=== PATIENT | male | born 1960 | race Caucasian/White ===

== ENCOUNTER 2019-04-13 11:54 | Emergency (ER) | payer MEDICAID ==
[~2019-04-13] VITALS: Ht 177.8 cm; Wt 100.4 kg
[2019-04-13] MEDS ORDERED: ALBUTEROL/IPRATROPIUM 2.5MG/0.5MG, 3 ML ONE (12:20)
--- NOTE | 2019-04-13 12:22 | NUR ---
PT PRESENTS TO ED WITH C/O SOB WITH EXERTION X 7-8 DAYS, +COUGH. PT DENIES CHEST PAIN. ALL MONITORS IN PLACE, OXYGEN APPLIED AT 2L/MIN VIA NC IN TRIAGE. PT A&O, RESPS EVEN AND UNLABORED. NADN. PT TO XRAY AT THIS TIME.
[2019-04-13] MEDS ORDERED: methylPREDNISolone SOD SUCC 125 MG/2 ML IV ONE (12:30)
[2019-04-13] MEDS ORDERED: SODIUM CHLORIDE FLUSH 10ML SYR IVF ONE (12:30)
[2019-04-13 12:49] LABS: BASOPHILS # (AUTO) 0.06 x10^3/uL (0-0.1); BASOPHILS % (AUTO) 1 % (0-1); EOSINOPHILS # (AUTO) 1.15 x10^3/uL (0-0.4); EOSINOPHILS % (AUTO) 15 % (1-7); LYMPHOCYTES # (AUTO) 1.57 x10^3/uL (1-3.4); LYMPHOCYTES % (AUTO) 21 % (22-44); MD NO; MEAN CORPUSCULAR HEMOGLOBIN 29.2 pg (27.5-34.5); MEAN CORPUSCULAR HGB CONC 32.7 g/dL (33.2-36.2); MEAN CORPUSCULAR VOLUME 89.2 fL (81-97); MEAN PLATELET VOLUME 7.5 fL (7.4-10.4); MONOCYTES # (AUTO) 0.67 x10^3/uL (0.2-0.8); MONOCYTES % (AUTO) 9 % (2-9); NEUTROPHILS % (AUTO) 54 % (42-75); PLATELET COUNT 261 x10^3/uL (130-400); RED BLOOD COUNT 4.76 x10^6/uL (4.38-5.82); RED CELL DISTRIBUTION WIDTH 14.1 % (9.4-14.8)
[2019-04-13 12:57] LABS: CHLORIDE 102 mmol/L (98-107)
--- NOTE | 2019-04-13 13:02 | NUR ---
PT MEDICATED PER EMAR, TOLERATED WELL. PT A&O, RESPS EVEN AND UNLABORED, NSR ON SCRUB TECH WITH NO ECTOPY NOTED. EKG HAS BEEN TAKEN BY EDT. PT ABLE TO SPEAK IN FULL SENTENCES WITHOUT DIFFICUTLY. AWAITING RT TX AT THIS TIME, RT AWARE OF ORDERS.
[2019-04-13 13:03] LABS: ALBUMIN 3.3 g/dL (3.4-5.0); ANION GAP 3 mmol/L (5-15); CALCIUM 8.9 mg/dL (8.5-10.1); CREATININE 0.72 mg/dL (0.7-1.3)
[2019-04-13 13:32] LABS: TROPONIN I < 0.015 ng/mL (0.000-0.045)
--- NOTE | 2019-04-13 13:52 | NUR ---
RT paged to give pt tx. pt a&o, resps even and unlabored, nsr on bus driver/monitor with no ectopy. nadn at this time.
[2019-04-13] MEDS: ALBUTEROL/IPRATROPIUM 2.5MG/0.5MG, 3 ML NPPB SCH (13:57)
[2019-04-13 14:57] VITALS: BP 127/89
--- NOTE | 2019-04-13 14:58 | NUR ---
RT TX HAS BEEN COMPLETED, PT A&O, RESPS EVEN AND UNLABORED, PT IS SINUS TACH RATE 90'S ON PEDIATRIC DENTIST WITH NO ECTOPY. PT TRIALED ON ROOM AIR, SPOW 88-92% ON ROOM AIR. OXYGEN REAPPLIED AT 2L/MIN VIA NC. MD BAINS INFORMED, AT BEDSIDE AT THIS TIME.
--- NOTE | 2019-04-13 14:59 | NUR ---
REPORT TO FRANKIE CARMEN.
--- NOTE | 2019-04-13 15:05 | NUR ---
REPORT FROM FRANKIE GOODWIN. POC IS DC. IV DC'D. PT OFF MONITORING. AWAITING DC INSTRUCTIONS.
--- NOTE | 2019-04-13 15:22 | NUR ---
DC EDUCATION PROVIDED, PT DEMONSTRATES UNDERSTANDING. PT AMBUALTED STEADILY TO DC WITH RN. PT STATES HE "HAS HIS PORTABLE OXYGEN IN THE CAR".
== END 2019-04-13 15:24 | disposition home or self-care (01) ==
LOC: ED 14:46
DX: J44.1 Chronic obstructive pulmonary disease with (acute) exacerbation (principal); Z87.891 Personal history of nicotine dependence
CPT/HCPCS: 36415; 71046; 80048; 82040; 83605; 83880; 84484; 85025; 87040; 93005; 94640; 96374; 99284; J2930; J7620

== ENCOUNTER 2019-06-04 15:37 | Inpatient (IN) | payer MEDICAID, OTHER ==
[~2019-06-04] VITALS: Ht 177.8 cm; Wt 95.7 kg
[~2019-06-04 15:37] MED LIST: FLUT1BLS9 INH; FURO40TA6 PO; HYDR200T72 PO; MONT10TA11 PO; PRED10TA PO; SULF500T36 PO; TIOT18CA INH; UMEC62.5 INH
[2019-06-04] MEDS ORDERED: methylPREDNISolone SOD SUCC 125 MG/2 ML ONE (16:15)
[2019-06-04] MEDS ORDERED: ALBUTEROL/IPRATROPIUM 2.5MG/0.5MG, 3 ML ONE (16:19)
[2019-06-04] MEDS ORDERED: ALBUTEROL/IPRATROPIUM 2.5MG/0.5MG, 3 ML NPPB ONE (16:30)
[2019-06-04] MEDS ORDERED: methylPREDNISolone SOD SUCC 125 MG/2 ML IV ONE (16:30)
[2019-06-04] MEDS ORDERED: SODIUM CHLORIDE FLUSH 10ML SYR IVF ONE (16:30)
[2019-06-04 16:34] LABS: BASOPHILS # (AUTO) 0.03 x10^3/uL (0-0.1); BASOPHILS % (AUTO) 0 % (0-1); EOSINOPHILS # (AUTO) 1.37 x10^3/uL (0-0.4); EOSINOPHILS % (AUTO) 20 % (1-7); LYMPHOCYTES % (AUTO) 16 % (22-44); MD NO; MEAN CORPUSCULAR HEMOGLOBIN 28.5 pg (27.5-34.5); MEAN CORPUSCULAR HGB CONC 32.5 g/dL (33.2-36.2); MEAN CORPUSCULAR VOLUME 87.6 fL (81-97); MEAN PLATELET VOLUME 7.9 fL (7.4-10.4); MONOCYTES # (AUTO) 0.58 x10^3/uL (0.2-0.8); MONOCYTES % (AUTO) 8 % (2-9); NEUTROPHILS # (AUTO) 3.76 x10^3/uL (1.8-6.8); NEUTROPHILS % (AUTO) 55 % (42-75); PLATELET COUNT 203 x10^3/uL (130-400); RED BLOOD COUNT 5.44 x10^6/uL (4.38-5.82); RED CELL DISTRIBUTION WIDTH 14.9 % (9.4-14.8)
[2019-06-04 16:37] LABS: ALBUMIN 3.8 g/dL (3.4-5.0); ANION GAP 2 mmol/L (5-15); CALCIUM 9.3 mg/dL (8.5-10.1); CHLORIDE 97 mmol/L (98-107)
--- NOTE | 2019-06-04 18:45 | NUR ---
PT REMAINS SATS GREATER THEN 92 % WHILE ON AT 3LPM OXI MASK WILL DESAT FAST ON RA TO 77% CONTINUES TO BE A04 AN HAS BEEN UP TO BS FOR URINATION
--- NOTE | 2019-06-04 19:18 | NUR ---
REPORT FROM ARABELLA DAVID. ASSUMING CARE OF PT
[2019-06-04] MEDS ORDERED: UMEC62.5 INH (19:32)
--- NOTE | 2019-06-04 20:23 | NUR ---
PT RESTING ON FRANCESCO ASHFORD MD AT BEDSIDE TO TEST PERFORM SWAB AT THIS TIME
[2019-06-04] MEDS ORDERED: SODIUM CHLORIDE FLUSH 10ML SYR IVF PRN (20:30)
[2019-06-04] MEDS ORDERED: DOXYCYCLINE 100MG TABLET ONE (20:37)
[2019-06-04] MEDS ORDERED: FUROSEMIDE 40 MG TABLET ONE (20:37)
[2019-06-04] MEDS ORDERED: SALMETEROL HOMEINH SCH (21:00)
[2019-06-04] MEDS ORDERED: LIDODERM 5% PATCH TD PRN (21:00)
[2019-06-04] MEDS ORDERED: ACETAMINOPHEN 325 MG TABLET PO PRN (21:00)
[2019-06-04] MEDS ORDERED: TEMAZEPAM 15 MG CAPSULE PO PRN (21:00)
[2019-06-04] MEDS ORDERED: FLUTICASONE PROPION HOMEINH SCH (21:00)
[2019-06-04] MEDS ORDERED: DOCUSATE 100 MG CAPSULE PO PRN (21:00)
[2019-06-04] MEDS: FUROSEMIDE 40 MG TABLET PO SCH (21:11)
[2019-06-04] MEDS: DOXYCYCLINE 100MG TABLET PO SCH (21:11)
--- NOTE | 2019-06-04 21:38 | NUR ---
REQ SENT TO PHARMACY AT THIS TIME. AWAITING MEDS
[2019-06-04 21:49] LABS: RAPID INFLUENZA A Negative (Negative); RAPID INFLUENZA B Negative (Negative)
--- NOTE | 2019-06-04 21:59 | NUR ---
REPORT TO BRIDGETTE DAVID. PT READY FOR TRANSFER TO 301-2
[2019-06-04] MEDS: MONTELUKAST 10 MG TABLET PO SCH (23:00)
[2019-06-04] MEDS: ENOXAPARIN 40 MG/0.4 ML SQ SCH (23:00)
[2019-06-04] MEDS: ALBUTEROL SULFATE 200 PUFFS/8.5 GR INH INH SCH (23:00)
[2019-06-04 23:15] VITALS: BP 140/85
[2019-06-05 03:37] VITALS: BP 127/64
[2019-06-05] MEDS: ALBUTEROL SULFATE 200 PUFFS/8.5 GR INH INH SCH ×4 (05:38→23:00)
[2019-06-05] MEDS: methylPREDNISolone SOD SUCC 125 MG/2 ML IVPush SCH ×3 (05:38→23:31)
[2019-06-05 06:42] LABS: BASOPHILS % (AUTO) 0 % (0-1); EOSINOPHILS % (AUTO) 0 % (1-7); LYMPHOCYTES # (AUTO) 0.65 x10^3/uL (1-3.4); LYMPHOCYTES % (AUTO) 19 % (22-44); MD NO; MEAN CORPUSCULAR HEMOGLOBIN 28.6 pg (27.5-34.5); MEAN CORPUSCULAR HGB CONC 32.5 g/dL (33.2-36.2); MONOCYTES # (AUTO) 0.12 x10^3/uL (0.2-0.8); MONOCYTES % (AUTO) 4 % (2-9); NEUTROPHILS # (AUTO) 2.65 x10^3/uL (1.8-6.8); NEUTROPHILS % (AUTO) 77 % (42-75); PLATELET COUNT 212 x10^3/uL (130-400); RED BLOOD COUNT 5.21 x10^6/uL (4.38-5.82)
[2019-06-05 06:46] LABS: ANION GAP 3 mmol/L (5-15); CALCIUM 9.3 mg/dL (8.5-10.1); CHLORIDE 98 mmol/L (98-107); CREATININE 0.99 mg/dL (0.7-1.3)
[2019-06-05] MEDS: DOXYCYCLINE 100MG TABLET PO SCH ×2 (08:19→21:52)
[2019-06-05] MEDS: SULFASALAZINE 500 MG TABLET PO SCH (08:19)
[2019-06-05] MEDS: HYDROXYCHLOROQUINE 200 MG TABLET PO SCH (08:19)
[2019-06-05 08:40] VITALS: BP 123/75
[2019-06-05] MEDS: UMECLIDINIUM BROMIDE HOMEINH SCH (08:41)
[2019-06-05] MEDS: FLUTICASONE PROPION HOMEINH SCH ×2 (08:41→21:00)
[2019-06-05] MEDS: SALMETEROL HOMEINH SCH ×2 (08:41→21:00)
[2019-06-05] MEDS: GUAIFENESIN/DM 200-20MG, 10ML UDC PO PRN (10:23)
[2019-06-05 14:33] VITALS: BP 133/92
[2019-06-05] MEDS: GUAIFENESIN ER 600 MG TABLET PO SCH ×2 (18:24→21:52)
[2019-06-05 18:57] VITALS: BP 128/81
[2019-06-05] MEDS: MONTELUKAST 10 MG TABLET PO SCH (21:51)
[2019-06-05] MEDS: FUROSEMIDE 40 MG TABLET PO SCH (21:53)
[2019-06-05] MEDS: ENOXAPARIN 40 MG/0.4 ML SQ SCH (21:53)
[2019-06-06 02:41] VITALS: BP 140/76
[2019-06-06] MEDS: ALBUTEROL SULFATE 200 PUFFS/8.5 GR INH INH SCH ×4 (05:00→23:00)
[2019-06-06] MEDS: methylPREDNISolone SOD SUCC 125 MG/2 ML IVPush SCH ×3 (06:30→22:40)
[2019-06-06] MEDS: DOXYCYCLINE 100MG TABLET PO SCH ×2 (09:03→20:27)
[2019-06-06] MEDS: SULFASALAZINE 500 MG TABLET PO SCH (09:03)
[2019-06-06] MEDS: HYDROXYCHLOROQUINE 200 MG TABLET PO SCH (09:03)
[2019-06-06] MEDS: UMECLIDINIUM BROMIDE HOMEINH SCH (09:03)
[2019-06-06] MEDS: SALMETEROL HOMEINH SCH ×2 (09:03→20:27)
[2019-06-06] MEDS: FLUTICASONE PROPION HOMEINH SCH ×2 (09:03→20:27)
[2019-06-06] MEDS: GUAIFENESIN ER 600 MG TABLET PO SCH ×2 (09:03→20:27)
[2019-06-06 09:22] VITALS: BP 123/80
[2019-06-06 15:04] VITALS: BP 134/87
[2019-06-06 20:00] VITALS: BP 145/88
[2019-06-06] MEDS: MONTELUKAST 10 MG TABLET PO SCH (20:27)
[2019-06-06] MEDS: ENOXAPARIN 40 MG/0.4 ML SQ SCH (20:27)
[2019-06-06] MEDS: FUROSEMIDE 40 MG TABLET PO SCH (20:27)
[2019-06-07] VITALS: BP 126/77
[2019-06-07] MEDS: ALBUTEROL SULFATE 200 PUFFS/8.5 GR INH INH SCH ×4 (05:15→22:52)
[2019-06-07] MEDS: methylPREDNISolone SOD SUCC 125 MG/2 ML IVPush SCH ×3 (06:18→22:52)
[2019-06-07 06:53] VITALS: BP 110/74
[2019-06-07] MEDS: UMECLIDINIUM BROMIDE HOMEINH SCH (09:00)
[2019-06-07] MEDS: FLUTICASONE PROPION HOMEINH SCH ×2 (09:00→20:40)
[2019-06-07] MEDS: SALMETEROL HOMEINH SCH ×2 (09:00→20:40)
[2019-06-07] MEDS: GUAIFENESIN ER 600 MG TABLET PO SCH ×2 (10:35→20:36)
[2019-06-07] MEDS: SULFASALAZINE 500 MG TABLET PO SCH (10:35)
[2019-06-07] MEDS: HYDROXYCHLOROQUINE 200 MG TABLET PO SCH (10:35)
[2019-06-07] MEDS: DOXYCYCLINE 100MG TABLET PO SCH ×2 (10:36→20:36)
[2019-06-07] MEDS: GUAIFENESIN/DM 200-20MG, 10ML UDC PO PRN (10:36)
[2019-06-07 12:06] VITALS: BP 135/84
[2019-06-07 17:40] LABS: MICROSCOPIC AUTO
[2019-06-07 17:41] LABS: CULTURE INDICATED? YES
[2019-06-07 18:23] VITALS: BP 136/84
[2019-06-07] MEDS: FUROSEMIDE 40 MG TABLET PO SCH (20:36)
[2019-06-07] MEDS: ENOXAPARIN 40 MG/0.4 ML SQ SCH (20:36)
[2019-06-07] MEDS: MONTELUKAST 10 MG TABLET PO SCH (20:36)
[2019-06-08 00:43] VITALS: BP 133/64
[2019-06-08] MEDS: ALBUTEROL SULFATE 200 PUFFS/8.5 GR INH INH SCH ×4 (05:12→23:00)
[2019-06-08 06:13] LABS: BASOPHILS % (AUTO) 0 % (0-1); EOSINOPHILS % (AUTO) 0 % (1-7); LYMPHOCYTES # (AUTO) 0.72 x10^3/uL (1-3.4); LYMPHOCYTES % (AUTO) 7 % (22-44); MD NO; MEAN CORPUSCULAR HGB CONC 32.9 g/dL (33.2-36.2); MEAN CORPUSCULAR VOLUME 88.2 fL (81-97); MEAN PLATELET VOLUME 8.2 fL (7.4-10.4); MONOCYTES # (AUTO) 0.25 x10^3/uL (0.2-0.8); MONOCYTES % (AUTO) 3 % (2-9); NEUTROPHILS # (AUTO) 9.01 x10^3/uL (1.8-6.8); NEUTROPHILS % (AUTO) 90 % (42-75); PLATELET COUNT 195 x10^3/uL (130-400); RED BLOOD COUNT 4.86 x10^6/uL (4.38-5.82); RED CELL DISTRIBUTION WIDTH 14.7 % (9.4-14.8)
[2019-06-08] MEDS: methylPREDNISolone SOD SUCC 125 MG/2 ML IVPush SCH ×3 (06:18→23:22)
[2019-06-08 06:24] LABS: CHLORIDE 99 mmol/L (98-107)
[2019-06-08 06:32] LABS: ANION GAP 5 mmol/L (5-15); CALCIUM 8.9 mg/dL (8.5-10.1); CREATININE 0.75 mg/dL (0.7-1.3)
[2019-06-08 06:49] VITALS: BP 109/70
[2019-06-08] MEDS: UMECLIDINIUM BROMIDE HOMEINH SCH (09:00)
[2019-06-08] MEDS: SALMETEROL HOMEINH SCH ×2 (09:00→20:28)
[2019-06-08] MEDS: FLUTICASONE PROPION HOMEINH SCH ×2 (09:00→20:28)
[2019-06-08] MEDS: SULFASALAZINE 500 MG TABLET PO SCH (10:24)
[2019-06-08] MEDS: DOXYCYCLINE 100MG TABLET PO SCH ×2 (10:25→20:28)
[2019-06-08] MEDS: HYDROXYCHLOROQUINE 200 MG TABLET PO SCH (10:25)
[2019-06-08] MEDS: GUAIFENESIN ER 600 MG TABLET PO SCH ×2 (10:25→20:28)
[2019-06-08] MEDS: GUAIFENESIN/DM 200-20MG, 10ML UDC PO PRN (10:26)
[2019-06-08 13:45] VITALS: BP 115/70
[2019-06-08] MEDS ORDERED: OMNIPAQUE 350 MG/ML, 100ML BOTTLE ONE (15:38)
[2019-06-08] MEDS: CEFDINIR 300 MG CAPSULE PO SCH (15:43)
[2019-06-08] MEDS: FUROSEMIDE 40 MG TABLET PO SCH (17:52)
[2019-06-08 18:12] VITALS: BP 119/68
[2019-06-08] MEDS: MONTELUKAST 10 MG TABLET PO SCH (20:28)
[2019-06-08] MEDS: ENOXAPARIN 40 MG/0.4 ML SQ SCH (20:28)
[2019-06-09 00:16] VITALS: BP 120/65
[2019-06-09] MEDS: CEFDINIR 300 MG CAPSULE PO SCH ×2 (04:56→14:08)
[2019-06-09] MEDS: ALBUTEROL SULFATE 200 PUFFS/8.5 GR INH INH SCH ×4 (04:57→23:00)
[2019-06-09 05:46] LABS: BASOPHILS % (AUTO) 0 % (0-1); EOSINOPHILS % (AUTO) 0 % (1-7); LYMPHOCYTES # (AUTO) 0.73 x10^3/uL (1-3.4); LYMPHOCYTES % (AUTO) 7 % (22-44); MD NO; MEAN CORPUSCULAR HEMOGLOBIN 28.8 pg (27.5-34.5); MEAN CORPUSCULAR VOLUME 87.4 fL (81-97); MEAN PLATELET VOLUME 8.4 fL (7.4-10.4); MONOCYTES # (AUTO) 0.37 x10^3/uL (0.2-0.8); MONOCYTES % (AUTO) 3 % (2-9); NEUTROPHILS # (AUTO) 9.79 x10^3/uL (1.8-6.8); NEUTROPHILS % (AUTO) 90 % (42-75); PLATELET COUNT 204 x10^3/uL (130-400); RED BLOOD COUNT 4.96 x10^6/uL (4.38-5.82); RED CELL DISTRIBUTION WIDTH 14.6 % (9.4-14.8)
[2019-06-09 05:53] LABS: CALCIUM 8.9 mg/dL (8.5-10.1); CHLORIDE 102 mmol/L (98-107)
[2019-06-09 05:56] LABS: ANION GAP 3 mmol/L (5-15); CREATININE 0.69 mg/dL (0.7-1.3)
[2019-06-09 06:40] VITALS: BP 137/91
[2019-06-09] MEDS: methylPREDNISolone SOD SUCC 125 MG/2 ML IVPush SCH ×2 (07:45→14:08)
[2019-06-09] MEDS: DOXYCYCLINE 100MG TABLET PO SCH ×2 (07:45→20:33)
[2019-06-09] MEDS: HYDROXYCHLOROQUINE 200 MG TABLET PO SCH (07:45)
[2019-06-09] MEDS: SULFASALAZINE 500 MG TABLET PO SCH (07:45)
[2019-06-09] MEDS: GUAIFENESIN ER 600 MG TABLET PO SCH ×2 (07:45→20:33)
[2019-06-09] MEDS: SALMETEROL HOMEINH SCH ×2 (07:46→20:33)
[2019-06-09] MEDS: UMECLIDINIUM BROMIDE HOMEINH SCH (07:46)
[2019-06-09] MEDS: FLUTICASONE PROPION HOMEINH SCH ×2 (07:46→20:33)
[2019-06-09 15:16] VITALS: BP 120/63
[2019-06-09] MEDS: FUROSEMIDE 40 MG TABLET PO SCH (16:23)
[2019-06-09] MEDS ORDERED: POTA20PA25 PO (17:08)
[2019-06-09] MEDS ORDERED: DOXY100T PO (17:08)
[2019-06-09] MEDS ORDERED: PRED20TA PO (17:08)
[2019-06-09] MEDS ORDERED: CEFD300C37 PO ×2 (17:08)
[2019-06-09 18:53] VITALS: BP 121/70
[2019-06-09] MEDS: ENOXAPARIN 40 MG/0.4 ML SQ SCH (20:33)
[2019-06-09] MEDS: MONTELUKAST 10 MG TABLET PO SCH (20:33)
[2019-06-10 00:28] VITALS: BP 112/70
[2019-06-10] MEDS: CEFDINIR 300 MG CAPSULE PO SCH (03:47)
[2019-06-10] MEDS: ALBUTEROL SULFATE 200 PUFFS/8.5 GR INH INH SCH ×2 (05:00→11:00)
[2019-06-10 06:38] VITALS: BP 134/84
[2019-06-10] MEDS: GUAIFENESIN ER 600 MG TABLET PO SCH (07:31)
[2019-06-10] MEDS: SULFASALAZINE 500 MG TABLET PO SCH (07:31)
[2019-06-10] MEDS: SALMETEROL HOMEINH SCH (07:31)
[2019-06-10] MEDS: UMECLIDINIUM BROMIDE HOMEINH SCH (07:31)
[2019-06-10] MEDS: DOXYCYCLINE 100MG TABLET PO SCH (07:31)
[2019-06-10] MEDS: FLUTICASONE PROPION HOMEINH SCH (07:31)
[2019-06-10] MEDS ORDERED: CEFD300C37 PO (09:32)
== END 2019-06-10 13:40 | disposition home or self-care (01) | DRG 189 ==
LOC: ED 17:21 → EDIP 20:40 → 3WST 22:29 → 3N 06-06 23:58
PROVIDERS: ADMIT Family Medicine; ATTEND Internal Medicine
DX: J96.21 Acute and chronic respiratory failure with hypoxia (principal); I50.32 Chronic diastolic (congestive) heart failure; Z16.23 Resistance to quinolones and fluoroquinolones; B96.20 Unspecified Escherichia coli [E. coli] as the cause of diseases classified elsewhere; I27.20 Pulmonary hypertension, unspecified; I35.0 Nonrheumatic aortic (valve) stenosis; J20.9 Acute bronchitis, unspecified; J43.9 Emphysema, unspecified; M06.9 Rheumatoid arthritis, unspecified; N30.90 Cystitis, unspecified without hematuria; Z87.891 Personal history of nicotine dependence
CPT/HCPCS: 36415; 71045; 71275; 80048; 81001; 82040; 83605; 83880; 85025; 87040; 87077; 87086; 87186; 87400; 93005; 93308; 93321; 93325; 94640; 96374; 99285; G0378; J1650; Q9967; J2930; J7512

== ENCOUNTER 2019-07-31 10:07 | Inpatient (IN) | payer OTHER ==
[~2019-07-31] VITALS: Ht 177.8 cm; Wt 105.2 kg
[~2019-07-31 10:07] MED LIST changes: +CEFD300C37 PO; +DOXY100T PO; +POTA20PA25 PO; +PRED20TA PO
--- NOTE | 2019-07-31 10:35 | NUR ---
pt to ed for sob x10 days. hx copd. pt connected to all monitors. pt placed on 3lnc now with recovery to >94%. vss on 3lnc. Dr. Lazo to bs for assessment. awaiting orders.
[2019-07-31] MEDS ORDERED: ALBUTEROL/IPRATROPIUM 2.5MG/0.5MG, 3 ML ONE ×2 (10:46→12:51)
[2019-07-31] MEDS ORDERED: methylPREDNISolone SOD SUCC 125 MG/2 ML ONE (10:51)
--- NOTE | 2019-07-31 10:57 | NUR ---
piv established and labs drawn. vss. pt emdicted per may. task rn to bs for [facility] tx at this time. awaiting results.
[2019-07-31] MEDS ORDERED: SODIUM CHLORIDE FLUSH 10ML SYR IVF ONE (11:00)
[2019-07-31] MEDS ORDERED: ALBUTEROL/IPRATROPIUM 2.5MG/0.5MG, 3 ML NPPB ONE ×2 (11:00→12:30)
[2019-07-31] MEDS ORDERED: methylPREDNISolone SOD SUCC 125 MG/2 ML IV ONE (11:00)
--- NOTE | 2019-07-31 11:02 | NUR ---
contacted radiology to facilitate chest x ray prior to neb tx. radiology was unavailable at time. breathing txc performed in room. papr worn throughout. pt tolerated tx well. airborne precautions sign placed.
[2019-07-31 11:15] LABS: BASOPHILS # (AUTO) 0.03 x10^3/uL (0-0.1); BASOPHILS % (AUTO) 0 % (0-1); EOSINOPHILS # (AUTO) 1.17 x10^3/uL (0-0.4); EOSINOPHILS % (AUTO) 13 % (1-7); LYMPHOCYTES # (AUTO) 1.45 x10^3/uL (1-3.4); LYMPHOCYTES % (AUTO) 16 % (22-44); MD NO; MEAN CORPUSCULAR HGB CONC 32.4 g/dL (33.2-36.2); MEAN CORPUSCULAR VOLUME 86.6 fL (81-97); MEAN PLATELET VOLUME 7.8 fL (7.4-10.4); MONOCYTES # (AUTO) 0.65 x10^3/uL (0.2-0.8); MONOCYTES % (AUTO) 7 % (2-9); NEUTROPHILS # (AUTO) 5.66 x10^3/uL (1.8-6.8); NEUTROPHILS % (AUTO) 63 % (42-75); PLATELET COUNT 270 x10^3/uL (130-400); RED BLOOD COUNT 4.92 x10^6/uL (4.38-5.82); RED CELL DISTRIBUTION WIDTH 15.1 % (9.4-14.8)
[2019-07-31 11:21] LABS: ALBUMIN 3.3 g/dL (3.4-5.0); ANION GAP 1 mmol/L (5-15); CALCIUM 9.1 mg/dL (8.5-10.1); CHLORIDE 97 mmol/L (98-107)
[2019-07-31 11:22] LABS: CREATININE 0.82 mg/dL (0.7-1.3)
--- NOTE | 2019-07-31 11:28 | NUR ---
all results back at this time. chart up for recheck.
--- NOTE | 2019-07-31 13:20 | NUR ---
O2 ROAD TEST WITH TECH. PER TECH, 4LNC O2 KEEPS SPO2 >93% WHILE WALKING.
--- NOTE | 2019-07-31 13:51 | NUR ---
PT RESTING IN ROOM. VSS ON 3LNC. DR. VALERA UPDATED PT ON POC. PLAN TO ADMIT.
[2019-07-31] MEDS ORDERED: ATOM80CA PO (14:17)
[2019-07-31] MEDS ORDERED: ZOLP10TA PO (14:17)
[2019-07-31] MEDS ORDERED: METH20TA PO (14:17)
[2019-07-31] MEDS ORDERED: GABA300C10 PO (14:17)
[2019-07-31] MEDS ORDERED: CARI4.5C PO (14:17)
[2019-07-31] MEDS ORDERED: CLON1TAB PO (14:17)
[2019-07-31] MEDS ORDERED: LISI-167 PO (14:18)
[2019-07-31] MEDS ORDERED: LEVE500T53 PO (14:18)
[2019-07-31] MEDS ORDERED: SODIUM CHLORIDE FLUSH 10ML SYR IVF PRN (14:30)
[2019-07-31] MEDS ORDERED: ONDANSETRON 2MG/ML, 2ML IVPush PRN (15:30)
[2019-07-31] MEDS ORDERED: POLYETHYLENE GLYCOL 17 GM PACKET PO PRN (15:30)
[2019-07-31] MEDS ORDERED: ACETAMINOPHEN 325 MG TABLET PO PRN (15:30)
[2019-07-31] MEDS ORDERED: ONDANSETRON ODT 4 MG PO PRN (15:30)
[2019-07-31] MEDS ORDERED: DOCUSATE 100 MG CAPSULE PO PRN (15:30)
--- NOTE | 2019-07-31 16:34 | NUR ---
REPORT TO FRANKIE DONOVAN. PT READY FOR TRANSPORT.
[2019-07-31] MEDS ORDERED: UMEC62.5 INH (18:11)
[2019-07-31] MEDS ORDERED: ALBU18HF INH (18:11)
[2019-07-31] MEDS ORDERED: FLUT1BLS9 INH (18:11)
[2019-07-31] MEDS ORDERED: ERGO2000 PO (18:11)
[2019-07-31] MEDS ORDERED: TUMERIC PO (18:11)
[2019-07-31] MEDS ORDERED: SULF500T47 PO (18:12)
[2019-07-31] MEDS ORDERED: ELDE1CAP PO (18:16)
[2019-07-31 18:19] VITALS: BP 130/73
[2019-07-31] MEDS: ENOXAPARIN 40 MG/0.4 ML SQ SCH (18:32)
[2019-07-31 20:38] VITALS: BP 132/76
[2019-07-31] MEDS: MONTELUKAST 5 MG TAB.CHEW PO SCH (20:44)
[2019-07-31] MEDS: HYDROXYCHLOROQUINE 200 MG TABLET PO SCH (20:45)
[2019-07-31] MEDS: methylPREDNISolone SOD SUCC 125 MG/2 ML IVPush SCH (20:45)
[2019-08-01] MEDS: methylPREDNISolone SOD SUCC 125 MG/2 ML IVPush SCH (02:10)
[2019-08-01 02:16] VITALS: BP 127/75
[2019-08-01 05:45] LABS: BASOPHILS # (AUTO) 0.01 x10^3/uL (0-0.1); BASOPHILS % (AUTO) 0 % (0-1); EOSINOPHILS % (AUTO) 0 % (1-7); LYMPHOCYTES # (AUTO) 0.73 x10^3/uL (1-3.4); LYMPHOCYTES % (AUTO) 12 % (22-44); MD NO; MEAN CORPUSCULAR HEMOGLOBIN 28.4 pg (27.5-34.5); MEAN CORPUSCULAR HGB CONC 32.7 g/dL (33.2-36.2); MEAN CORPUSCULAR VOLUME 86.7 fL (81-97); MEAN PLATELET VOLUME 7.8 fL (7.4-10.4); MONOCYTES # (AUTO) 0.07 x10^3/uL (0.2-0.8); MONOCYTES % (AUTO) 1 % (2-9); NEUTROPHILS # (AUTO) 5.24 x10^3/uL (1.8-6.8); NEUTROPHILS % (AUTO) 87 % (42-75); PLATELET COUNT 248 x10^3/uL (130-400); RED BLOOD COUNT 4.69 x10^6/uL (4.38-5.82); RED CELL DISTRIBUTION WIDTH 15.4 % (9.4-14.8)
[2019-08-01 05:53] LABS: ALANINE AMINOTRANSFERASE 25 U/L (12-78); ALBUMIN 3.1 g/dL (3.4-5.0); ANION GAP 3 mmol/L (5-15); CALCIUM 9.3 mg/dL (8.5-10.1); CHLORIDE 97 mmol/L (98-107)
[2019-08-01 05:56] LABS: ALKALINE PHOSPHATASE 106 U/L (45-117); BILIRUBIN,TOTAL 0.4 mg/dL (0.2-1.0); CREATININE 0.81 mg/dL (0.7-1.3); TOTAL PROTEIN 8.7 g/dL (6.4-8.2)
[2019-08-01 07:09] VITALS: BP 107/65
[2019-08-01] MEDS: SULFASALAZINE 500 MG TABLET PO SCH (08:19)
[2019-08-01] MEDS: HYDROXYCHLOROQUINE 200 MG TABLET PO SCH ×2 (08:19→22:16)
[2019-08-01] MEDS: FUROSEMIDE 40 MG TABLET PO SCH (08:20)
[2019-08-01] MEDS ORDERED: HYDROXYCHLOROQUINE 200 MG TABLET PO SCH (09:00)
[2019-08-01 12:17] LABS: BILIRUBIN, DIRECT 0.1 mg/dL (0.1-0.2)
[2019-08-01 13:23] VITALS: BP 109/66
[2019-08-01] MEDS ORDERED: FURO40TA6 PO (14:48)
[2019-08-01] MEDS ORDERED: TUMERIC PO SCH (16:00)
[2019-08-01] MEDS ORDERED: ALBUTEROL SULFATE 2.5 MG/3 ML NPPB SCH (16:00)
[2019-08-01] MEDS: ALBUTEROL/IPRATROPIUM 2.5MG/0.5MG, 3 ML NPPB SCH ×2 (17:17→17:18)
[2019-08-01] MEDS ORDERED: VENTOLIN INH SCH (18:00)
[2019-08-01] MEDS: ENOXAPARIN 40 MG/0.4 ML SQ SCH (18:17)
[2019-08-01 20:31] VITALS: BP 102/62
[2019-08-01] MEDS: FLUTICASONE PROPION INH SCH (21:00)
[2019-08-01] MEDS ORDERED: FLUTICASONE PROPION INH SCH (21:00)
[2019-08-01] MEDS ORDERED: [UNRECOGNIZED DRUG - OTHER] INH SCH (21:00)
[2019-08-01] MEDS: [UNRECOGNIZED DRUG - OTHER] INH SCH (21:00)
[2019-08-01] MEDS ORDERED: BUDESONIDE 0.5 MG/2 ML INHA NPPB SCH (21:00)
[2019-08-01] MEDS: SALMETEROL INH SCH (21:00)
[2019-08-01] MEDS ORDERED: SALMETEROL INH SCH (21:00)
[2019-08-01] MEDS: ALBUTEROL HFA 90 MCG/SPRAY INH SCH (22:00)
[2019-08-01] MEDS: MONTELUKAST 5 MG TAB.CHEW PO SCH (22:16)
[2019-08-02 00:41] VITALS: BP 127/72
[2019-08-02] MEDS: ALBUTEROL HFA 90 MCG/SPRAY INH SCH ×5 (06:00→22:00)
[2019-08-02 07:28] VITALS: BP 125/77
[2019-08-02] MEDS ORDERED: [UNRECOGNIZED DRUG - OTHER] PO SCH (09:00)
[2019-08-02] MEDS ORDERED: ELDERBERRY FRUIT AND FLOWER PO SCH (09:00)
[2019-08-02] MEDS: SULFASALAZINE 500 MG TABLET PO SCH (09:42)
[2019-08-02] MEDS: HYDROXYCHLOROQUINE 200 MG TABLET PO SCH ×2 (09:42→20:23)
[2019-08-02] MEDS: FUROSEMIDE 40 MG TABLET PO SCH (09:43)
[2019-08-02] MEDS: FLUTICASONE PROPION INH SCH ×2 (09:47→20:24)
[2019-08-02] MEDS: [UNRECOGNIZED DRUG - OTHER] INH SCH ×2 (09:47→20:24)
[2019-08-02] MEDS: SALMETEROL INH SCH ×2 (09:47→20:24)
[2019-08-02 12:26] VITALS: BP 110/71
[2019-08-02] MEDS ORDERED: SULF500T47 PO (16:01)
[2019-08-02] MEDS ORDERED: FURO40TA6 PO (16:01)
[2019-08-02] MEDS ORDERED: FLUT1BLS9 INH (16:01)
[2019-08-02] MEDS ORDERED: ELDE1CAP PO (16:01)
[2019-08-02] MEDS ORDERED: ALBU18HF INH (16:01)
[2019-08-02] MEDS ORDERED: ERGO2000 PO (16:01)
[2019-08-02] MEDS ORDERED: UMEC62.5 INH (16:01)
[2019-08-02] MEDS: ENOXAPARIN 40 MG/0.4 ML SQ SCH (17:29)
[2019-08-02] MEDS: MONTELUKAST 5 MG TAB.CHEW PO SCH (20:23)
[2019-08-02 20:29] VITALS: BP 134/83
[2019-08-03 01:32] VITALS: BP 125/82
[2019-08-03] MEDS: ALBUTEROL HFA 90 MCG/SPRAY INH SCH ×3 (06:00→14:00)
[2019-08-03 06:51] LABS: ALBUMIN 2.9 g/dL (3.4-5.0); ANION GAP 2 mmol/L (5-15); CALCIUM 8.7 mg/dL (8.5-10.1); CHLORIDE 99 mmol/L (98-107); CREATININE 0.63 mg/dL (0.7-1.3)
[2019-08-03 06:53] LABS: BASOPHILS # (AUTO) 0.03 x10^3/uL (0-0.1); BASOPHILS % (AUTO) 0 % (0-1); EOSINOPHILS # (AUTO) 0.02 x10^3/uL (0-0.4); EOSINOPHILS % (AUTO) 0 % (1-7); LYMPHOCYTES # (AUTO) 2.04 x10^3/uL (1-3.4); LYMPHOCYTES % (AUTO) 17 % (22-44); MD NO; MEAN CORPUSCULAR HEMOGLOBIN 28.1 pg (27.5-34.5); MEAN CORPUSCULAR HGB CONC 32.3 g/dL (33.2-36.2); MEAN PLATELET VOLUME 8.3 fL (7.4-10.4); MONOCYTES # (AUTO) 1.37 x10^3/uL (0.2-0.8); MONOCYTES % (AUTO) 12 % (2-9); NEUTROPHILS # (AUTO) 8.37 x10^3/uL (1.8-6.8); NEUTROPHILS % (AUTO) 71 % (42-75); PLATELET COUNT 233 x10^3/uL (130-400); RED CELL DISTRIBUTION WIDTH 15.4 % (9.4-14.8)
[2019-08-03 07:13] VITALS: BP 117/71
[2019-08-03] MEDS: SULFASALAZINE 500 MG TABLET PO SCH (08:51)
[2019-08-03] MEDS: FLUTICASONE PROPION INH SCH (08:52)
[2019-08-03] MEDS: FUROSEMIDE 40 MG TABLET PO SCH (08:52)
[2019-08-03] MEDS: [UNRECOGNIZED DRUG - OTHER] INH SCH (08:52)
[2019-08-03] MEDS: SALMETEROL INH SCH (08:52)
[2019-08-03] MEDS: HYDROXYCHLOROQUINE 200 MG TABLET PO SCH (08:52)
[2019-08-03 14:27] VITALS: BP 114/73
[2019-08-03] MEDS ORDERED: PRED20TA PO (14:55)
[2019-08-03 14:59] VITALS: BP 114/73
== END 2019-08-03 15:45 | disposition home or self-care (01) | DRG 189 ==
LOC: ED 12:08 → EDIP 15:03 → 4NW 17:28
PROVIDERS: ADMIT Family Medicine; ATTEND Family Medicine
DX: J96.21 Acute and chronic respiratory failure with hypoxia (principal); J44.1 Chronic obstructive pulmonary disease with (acute) exacerbation; I50.32 Chronic diastolic (congestive) heart failure; M06.9 Rheumatoid arthritis, unspecified; I35.0 Nonrheumatic aortic (valve) stenosis; I27.20 Pulmonary hypertension, unspecified; I11.0 Hypertensive heart disease with heart failure; E66.9 Obesity, unspecified; Z79.899 Other long term (current) drug therapy; Z82.49 Family history of ischemic heart disease and other diseases of the circulatory system; Z11.59 Encounter for screening for other viral diseases; Z68.33 Body mass index [BMI] 33.0-33.9, adult; Z87.891 Personal history of nicotine dependence
CPT/HCPCS: 36415; 71045; 80048; 80053; 80069; 82040; 82248; 83690; 83735; 84145; 85025; 93005; 96374; 96376; 99285; G0378; J1650; J2930; J7512; U0001

== ENCOUNTER 2019-08-23 12:44 | Inpatient (IN) | payer OTHER ==
[~2019-08-23] VITALS: Ht 177.8 cm; Wt 101.5 kg
[~2019-08-23 12:44] MED LIST changes: +ALBU18HF INH; +ATOM80CA PO; +CARI4.5C PO; +CLON1TAB PO; +ELDE1CAP PO; +ERGO2000 PO; +GABA300C10 PO; +LEVE500T53 PO; +LISI-167 PO; +METH20TA PO; +SULF500T47 PO; +TUMERIC PO; +ZOLP10TA PO
[2019-08-23] MEDS ORDERED: FLUT9.9S16 NAS (13:21)
[2019-08-23] MEDS ORDERED: MONT10TA11 PO (13:21)
[2019-08-23] MEDS ORDERED: HYDR200T72 PO (13:22)
--- NOTE | 2019-08-23 13:27 | NUR ---
THIS IS A 59 YO MALE WHO PRESENTS TO THE ER C/O INCREASING SOB X 5 DAYS. PT HAS HX OF COPD AND HAS NOT REPORTED RELIEF WITH HIS USUAL MEDS. PT ALSO REPORT SOME NAUSEA. PT AO X 4. PT ABLE TO SPEAK IN FULL 5-7 WORD SENTENCES W/O DIFFICULTY. RESP EVEN AND UNLABORED. LUNGS DIMINSHED WITH EXPIRATORY WHEEZES T/O. TONY ROPER AT BEDSIDE FOR EVAL. PT ON CONT BP, CARDIAC AND O2 MONITORS. CALL LIGHT WITHIN REACH. WILL CONT TO MONITOR PT.
[2019-08-23 13:58] LABS: BASOPHILS # (AUTO) 0.05 x10^3/uL (0-0.1); BASOPHILS % (AUTO) 1 % (0-1); EOSINOPHILS # (AUTO) 0.83 x10^3/uL (0-0.4); EOSINOPHILS % (AUTO) 12 % (1-7); LYMPHOCYTES # (AUTO) 1.38 x10^3/uL (1-3.4); LYMPHOCYTES % (AUTO) 19 % (22-44); MD NO; MEAN CORPUSCULAR HEMOGLOBIN 28.4 pg (27.5-34.5); MEAN CORPUSCULAR HGB CONC 32.8 g/dL (33.2-36.2); MEAN CORPUSCULAR VOLUME 86.7 fL (81-97); MONOCYTES # (AUTO) 0.52 x10^3/uL (0.2-0.8); MONOCYTES % (AUTO) 7 % (2-9); NEUTROPHILS # (AUTO) 4.46 x10^3/uL (1.8-6.8); NEUTROPHILS % (AUTO) 62 % (42-75); PLATELET COUNT 209 x10^3/uL (130-400); RED BLOOD COUNT 4.97 x10^6/uL (4.38-5.82); RED CELL DISTRIBUTION WIDTH 14.2 % (9.4-14.8)
[2019-08-23] MEDS ORDERED: SODIUM CHLORIDE FLUSH 10ML SYR IVF ONE (14:00)
[2019-08-23] MEDS ORDERED: ALBUTEROL-IPRATROPIUM MDI INH INH PRN (14:00)
[2019-08-23 14:07] LABS: ALANINE AMINOTRANSFERASE 27 U/L (12-78); ALBUMIN 3.1 g/dL (3.4-5.0); ANION GAP 5 mmol/L (5-15); C-REACTIVE PROTEIN, QUANT 0.49 mg/dL (0.02-0.49); CALCIUM 8.9 mg/dL (8.5-10.1); CHLORIDE 95 mmol/L (98-107); CREATININE 0.87 mg/dL (0.7-1.3)
--- NOTE | 2019-08-23 14:08 | NUR ---
PT MEDICATED ORDERED. PT AO X 4. SKIN PWD. RESP EVED AND UNLABORED. PT ABLE TO SPEAK IN FULL 5-7 WORD SENTENCES W/O DIFFICULTY. CALL LIGHT WITHIN REACH. WILL CONT TO MONITOR PT.
[2019-08-23 14:12] LABS: ALKALINE PHOSPHATASE 102 U/L (45-117); BILIRUBIN,TOTAL 0.7 mg/dL (0.2-1.0); TOTAL PROTEIN 8.1 g/dL (6.4-8.2); TROPONIN I < 0.015 ng/mL (0.000-0.045)
[2019-08-23] MEDS ORDERED: CEFTRIAXONE PMX 1GM/50ML 50 ML IV ONE (15:00)
[2019-08-23] MEDS ORDERED: CEFTRIAXONE PMX 1GM/50ML 50 ML ONE (15:11)
[2019-08-23] MEDS ORDERED: BACLOFEN 10 MG TABLET PO PRN (16:30)
[2019-08-23] MEDS ORDERED: LABETALOL 5MG/ML, 20ML IVPush PRN (16:30)
[2019-08-23] MEDS ORDERED: hydrALAzine 20 MG/ML, 1ML IVPush PRN (16:30)
[2019-08-23] MEDS ORDERED: DOCUSATE 100 MG CAPSULE PO PRN (16:30)
[2019-08-23] MEDS ORDERED: ACETAMINOPHEN 325 MG TABLET PO PRN (16:30)
[2019-08-23] MEDS ORDERED: BUTALB/APAP/CAFFEINE 50MG/325MG/40MG PO PRN (16:30)
[2019-08-23] MEDS ORDERED: ASCORBATE SODIUM 3,000 MG in SODIUM CHLORIDE 0.9% 250 ML IVPB SCH (16:30)
[2019-08-23] MEDS ORDERED: POLYETHYLENE GLYCOL 17 GM PACKET PO PRN (16:30)
[2019-08-23] MEDS ORDERED: GUAIFENESIN/DM 200-20MG, 10ML UDC PO PRN (16:30)
[2019-08-23] MEDS ORDERED: TRAZODONE 50MG TABLET PO PRN (16:30)
[2019-08-23] MEDS ORDERED: ASA/APAP/ CAFFEINE TABLET PO PRN (16:30)
[2019-08-23] MEDS ORDERED: LACTATED RINGERS 1,000 ML IV ONE (16:30)
[2019-08-23] MEDS ORDERED: ONDANSETRON ODT 4 MG PO PRN (16:30)
[2019-08-23] MEDS ORDERED: ONDANSETRON 2MG/ML, 2ML IVPush PRN (16:30)
[2019-08-23] MEDS ORDERED: KETOROLAC 30 MG/1 ML IV PRN (16:30)
[2019-08-23] MEDS: methylPREDNISolone SOD SUCC 40 MG/ML IVPush SCH ×2 (17:15→23:19)
[2019-08-23] MEDS: ASCORBATE SODIUM 3,000 MG in SODIUM CHLORIDE 0.9% 250 ML IVPB SCH ×2 (17:15→23:24)
[2019-08-23] MEDS: ENOXAPARIN 40 MG/0.4 ML SQ SCH (17:15)
[2019-08-23 17:16] VITALS: BP 150/93
[2019-08-23 19:16] VITALS: BP 138/91
[2019-08-23] MEDS: HYDROXYCHLOROQUINE 200 MG TABLET PO SCH (20:15)
[2019-08-23] MEDS: AZITHROMYCIN 500 MG in SODIUM CHLORIDE 0.9% 250 ML IV SCH (20:18)
[2019-08-23] MEDS: ALBUTEROL-IPRATROPIUM MDI INH INH SCH (20:19)
[2019-08-24 00:40] VITALS: BP 131/89
[2019-08-24] MEDS: ALBUTEROL-IPRATROPIUM MDI INH INH SCH ×5 (03:00→20:30)
[2019-08-24] MEDS: CEFTRIAXONE PMX 1GM/50ML 50 ML IV SCH ×2 (03:05→14:10)
[2019-08-24] MEDS: methylPREDNISolone SOD SUCC 40 MG/ML IVPush SCH ×4 (05:08→22:49)
[2019-08-24] MEDS: ASCORBATE SODIUM 3,000 MG in SODIUM CHLORIDE 0.9% 250 ML IVPB SCH ×4 (05:12→22:49)
[2019-08-24 05:27] LABS: ALANINE AMINOTRANSFERASE 24 U/L (12-78); ANION GAP 7 mmol/L (5-15); CHLORIDE 99 mmol/L (98-107); CREATININE 0.62 mg/dL (0.7-1.3)
[2019-08-24 05:37] LABS: ALKALINE PHOSPHATASE 97 U/L (45-117); BILIRUBIN,TOTAL 0.5 mg/dL (0.2-1.0); TOTAL PROTEIN 8.1 g/dL (6.4-8.2)
[2019-08-24 05:41] LABS: BASOPHILS # (AUTO) 0.01 x10^3/uL (0-0.1); BASOPHILS % (AUTO) 0 % (0-1); EOSINOPHILS % (AUTO) 0 % (1-7); LYMPHOCYTES # (AUTO) 0.53 x10^3/uL (1-3.4); LYMPHOCYTES % (AUTO) 18 % (22-44); MD NO; MEAN CORPUSCULAR HEMOGLOBIN 28.7 pg (27.5-34.5); MEAN CORPUSCULAR HGB CONC 32.9 g/dL (33.2-36.2); MEAN PLATELET VOLUME 8.1 fL (7.4-10.4); MONOCYTES # (AUTO) 0.04 x10^3/uL (0.2-0.8); MONOCYTES % (AUTO) 1 % (2-9); NEUTROPHILS # (AUTO) 2.34 x10^3/uL (1.8-6.8); NEUTROPHILS % (AUTO) 80 % (42-75); PLATELET COUNT 200 x10^3/uL (130-400); RED CELL DISTRIBUTION WIDTH 14.6 % (9.4-14.8)
[2019-08-24] MEDS: MONTELUKAST 10 MG TABLET PO SCH (08:06)
[2019-08-24] MEDS: FUROSEMIDE 40 MG TABLET PO SCH (08:06)
[2019-08-24] MEDS: ZINC SULFATE 220 MG CAPSULE PO SCH (08:06)
[2019-08-24] MEDS: HYDROXYCHLOROQUINE 200 MG TABLET PO SCH ×2 (08:06→20:30)
[2019-08-24] MEDS: SULFASALAZINE 500 MG TABLET PO SCH (08:07)
[2019-08-24] MEDS: CHOLECALCIFEROL 1,000 UNIT TABLET PO SCH (08:07)
[2019-08-24 08:20] VITALS: BP 147/78
[2019-08-24] MEDS ORDERED: CHOLECALCIFEROL 1,000 UNIT TABLET PO SCH (09:00)
[2019-08-24] MEDS ORDERED: methylPREDNISolone SOD SUCC 125 MG/2 ML ONE (11:56)
[2019-08-24] MEDS: FLUTICASONE FUROATE 100MCG/INH INH SCH (13:04)
[2019-08-24 13:25] VITALS: BP 136/77
[2019-08-24] MEDS: ENOXAPARIN 40 MG/0.4 ML SQ SCH (16:46)
[2019-08-24 19:33] VITALS: BP 118/77
[2019-08-24] MEDS: AZITHROMYCIN 500 MG in SODIUM CHLORIDE 0.9% 250 ML IV SCH (20:29)
[2019-08-24] MEDS: MELATONIN 3 MG TABLET PO SCH (20:30)
[2019-08-25 00:25] VITALS: BP 134/86
[2019-08-25] MEDS: CEFTRIAXONE PMX 1GM/50ML 50 ML IV SCH ×2 (02:46→14:57)
[2019-08-25] MEDS: ALBUTEROL-IPRATROPIUM MDI INH INH SCH ×4 (02:46→20:18)
[2019-08-25] MEDS: methylPREDNISolone SOD SUCC 40 MG/ML IVPush SCH ×2 (04:55→10:47)
[2019-08-25 05:43] LABS: HCT (SEDRATE) 39.7 % (39.2-51.8)
[2019-08-25 05:47] LABS: BASOPHILS # (AUTO) 0.01 x10^3/uL (0-0.1); BASOPHILS % (AUTO) 0 % (0-1); EOSINOPHILS % (AUTO) 0 % (1-7); LYMPHOCYTES # (AUTO) 0.79 x10^3/uL (1-3.4); LYMPHOCYTES % (AUTO) 13 % (22-44); MD NO; MEAN CORPUSCULAR HEMOGLOBIN 28.3 pg (27.5-34.5); MEAN CORPUSCULAR HGB CONC 32.3 g/dL (33.2-36.2); MEAN CORPUSCULAR VOLUME 87.6 fL (81-97); MEAN PLATELET VOLUME 8.2 fL (7.4-10.4); MONOCYTES # (AUTO) 0.24 x10^3/uL (0.2-0.8); MONOCYTES % (AUTO) 4 % (2-9); NEUTROPHILS # (AUTO) 5.06 x10^3/uL (1.8-6.8); NEUTROPHILS % (AUTO) 83 % (42-75); PLATELET COUNT 192 x10^3/uL (130-400); RED BLOOD COUNT 4.54 x10^6/uL (4.38-5.82); RED CELL DISTRIBUTION WIDTH 15.1 % (9.4-14.8)
[2019-08-25 05:49] LABS: ANION GAP 2 mmol/L (5-15); CALCIUM 8.7 mg/dL (8.5-10.1); CHLORIDE 102 mmol/L (98-107)
[2019-08-25 05:57] LABS: C-REACTIVE PROTEIN, QUANT 0.26 mg/dL (0.02-0.49); CREATININE 0.65 mg/dL (0.7-1.3)
[2019-08-25 07:07] VITALS: BP 113/73
[2019-08-25] MEDS: FLUTICASONE FUROATE 100MCG/INH INH SCH (08:04)
[2019-08-25] MEDS: ZINC SULFATE 220 MG CAPSULE PO SCH (08:04)
[2019-08-25] MEDS: FUROSEMIDE 40 MG TABLET PO SCH (08:04)
[2019-08-25] MEDS: SULFASALAZINE 500 MG TABLET PO SCH (08:04)
[2019-08-25] MEDS: MONTELUKAST 10 MG TABLET PO SCH (08:04)
[2019-08-25] MEDS: HYDROXYCHLOROQUINE 200 MG TABLET PO SCH ×2 (08:04→20:16)
[2019-08-25] MEDS: CHOLECALCIFEROL 1,000 UNIT TABLET PO SCH (08:05)
[2019-08-25 12:06] VITALS: BP 126/80
[2019-08-25] MEDS: ENOXAPARIN 40 MG/0.4 ML SQ SCH (14:57)
[2019-08-25] MEDS: AZITHROMYCIN 500 MG in SODIUM CHLORIDE 0.9% 250 ML IV SCH (20:16)
[2019-08-25] MEDS: MELATONIN 3 MG TABLET PO SCH (20:16)
[2019-08-25 20:41] VITALS: BP 113/70
[2019-08-26 00:52] VITALS: BP 126/83
[2019-08-26] MEDS: ALBUTEROL-IPRATROPIUM MDI INH INH SCH ×4 (02:22→20:09)
[2019-08-26] MEDS: CEFTRIAXONE PMX 1GM/50ML 50 ML IV SCH (02:40)
[2019-08-26] MEDS: methylPREDNISolone SOD SUCC 40 MG/ML IV SCH ×2 (05:31→18:06)
[2019-08-26 07:27] VITALS: BP 123/88
[2019-08-26] MEDS: ZINC SULFATE 220 MG CAPSULE PO SCH (09:41)
[2019-08-26] MEDS: FUROSEMIDE 40 MG TABLET PO SCH (09:41)
[2019-08-26] MEDS: SULFASALAZINE 500 MG TABLET PO SCH (09:41)
[2019-08-26] MEDS: CHOLECALCIFEROL 1,000 UNIT TABLET PO SCH (09:41)
[2019-08-26] MEDS: MONTELUKAST 10 MG TABLET PO SCH (09:41)
[2019-08-26] MEDS: HYDROXYCHLOROQUINE 200 MG TABLET PO SCH ×2 (09:41→20:09)
[2019-08-26] MEDS: FLUTICASONE FUROATE 100MCG/INH INH SCH (09:42)
[2019-08-26 12:40] VITALS: BP 135/72
[2019-08-26] MEDS: AMPICILLIN/SULBACTAM 3 GM in SODIUM CHLORIDE 0.9% 100 ML IV SCH ×2 (13:52→20:09)
[2019-08-26] MEDS: ENOXAPARIN 40 MG/0.4 ML SQ SCH (15:22)
[2019-08-26 18:30] VITALS: BP 147/77
[2019-08-26] MEDS: MELATONIN 3 MG TABLET PO SCH (20:09)
[2019-08-27] MEDS: ALBUTEROL-IPRATROPIUM MDI INH INH SCH ×4 (02:43→21:00)
[2019-08-27] MEDS: AMPICILLIN/SULBACTAM 3 GM in SODIUM CHLORIDE 0.9% 100 ML IV SCH ×4 (02:48→21:11)
[2019-08-27 02:53] VITALS: BP 131/79
[2019-08-27] MEDS: methylPREDNISolone SOD SUCC 40 MG/ML IV SCH (05:50)
[2019-08-27 07:07] VITALS: BP 136/84
[2019-08-27] MEDS: FLUTICASONE FUROATE 100MCG/INH INH SCH (09:19)
[2019-08-27] MEDS: MONTELUKAST 10 MG TABLET PO SCH (09:21)
[2019-08-27] MEDS: HYDROXYCHLOROQUINE 200 MG TABLET PO SCH ×2 (09:21→21:16)
[2019-08-27] MEDS: CHOLECALCIFEROL 1,000 UNIT TABLET PO SCH (09:21)
[2019-08-27] MEDS: SULFASALAZINE 500 MG TABLET PO SCH (09:21)
[2019-08-27] MEDS: FUROSEMIDE 40 MG TABLET PO SCH (09:22)
[2019-08-27] MEDS: ZINC SULFATE 220 MG CAPSULE PO SCH (09:22)
[2019-08-27 15:02] VITALS: BP 127/76
[2019-08-27] MEDS: ENOXAPARIN 40 MG/0.4 ML SQ SCH (15:15)
[2019-08-27] MEDS: DOXYCYCLINE 100MG TABLET PO SCH (21:11)
[2019-08-27] MEDS: GUAIFENESIN ER 600 MG TABLET PO SCH (21:11)
[2019-08-27] MEDS: MELATONIN 3 MG TABLET PO SCH (21:11)
[2019-08-27 21:19] VITALS: BP 131/78
[2019-08-28 00:26] VITALS: BP 134/86
[2019-08-28] MEDS: AMPICILLIN/SULBACTAM 3 GM in SODIUM CHLORIDE 0.9% 100 ML IV SCH ×4 (02:45→20:41)
[2019-08-28] MEDS: ALBUTEROL-IPRATROPIUM MDI INH INH SCH ×2 (02:45→04:15)
[2019-08-28 06:41] VITALS: BP 137/85
[2019-08-28] MEDS: HYDROXYCHLOROQUINE 200 MG TABLET PO SCH ×2 (09:23→20:47)
[2019-08-28] MEDS: DOXYCYCLINE 100MG TABLET PO SCH ×2 (09:23→20:39)
[2019-08-28] MEDS: SULFASALAZINE 500 MG TABLET PO SCH (09:23)
[2019-08-28] MEDS: FLUTICASONE FUROATE 100MCG/INH INH SCH (09:23)
[2019-08-28] MEDS: CHOLECALCIFEROL 1,000 UNIT TABLET PO SCH (09:24)
[2019-08-28] MEDS: MONTELUKAST 10 MG TABLET PO SCH (09:24)
[2019-08-28] MEDS: GUAIFENESIN ER 600 MG TABLET PO SCH ×2 (09:24→20:39)
[2019-08-28] MEDS: ZINC SULFATE 220 MG CAPSULE PO SCH (09:24)
[2019-08-28] MEDS: FUROSEMIDE 40 MG TABLET PO SCH (09:24)
[2019-08-28 13:08] VITALS: BP 132/79
[2019-08-28] MEDS: ENOXAPARIN 40 MG/0.4 ML SQ SCH (14:43)
[2019-08-28 20:11] VITALS: BP 146/90
[2019-08-28] MEDS: MELATONIN 3 MG TABLET PO SCH (20:39)
[2019-08-28] MEDS: ALBUTEROL/IPRATROPIUM 2.5MG/0.5MG, 3 ML NPPB SCH (21:00)
[2019-08-29 01:39] VITALS: BP 120/76
[2019-08-29] MEDS: AMPICILLIN/SULBACTAM 3 GM in SODIUM CHLORIDE 0.9% 100 ML IV SCH ×4 (03:00→20:47)
[2019-08-29] MEDS: ALBUTEROL/IPRATROPIUM 2.5MG/0.5MG, 3 ML NPPB SCH ×3 (03:00→09:00)
[2019-08-29 06:10] LABS: CREATININE 0.71 mg/dL (0.7-1.3)
[2019-08-29 06:51] VITALS: BP 108/74
[2019-08-29] MEDS: MONTELUKAST 10 MG TABLET PO SCH (08:31)
[2019-08-29] MEDS: DOXYCYCLINE 100MG TABLET PO SCH ×2 (08:31→20:47)
[2019-08-29] MEDS: ZINC SULFATE 220 MG CAPSULE PO SCH (08:31)
[2019-08-29] MEDS: FUROSEMIDE 40 MG TABLET PO SCH (08:31)
[2019-08-29] MEDS: GUAIFENESIN ER 600 MG TABLET PO SCH ×2 (08:31→20:47)
[2019-08-29] MEDS: HYDROXYCHLOROQUINE 200 MG TABLET PO SCH ×2 (08:31→20:47)
[2019-08-29] MEDS: CHOLECALCIFEROL 1,000 UNIT TABLET PO SCH (08:31)
[2019-08-29] MEDS: SULFASALAZINE 500 MG TABLET PO SCH (08:32)
[2019-08-29] MEDS: FLUTICASONE FUROATE 100MCG/INH INH SCH ×2 (09:00→21:29)
[2019-08-29 12:34] VITALS: BP 117/77
[2019-08-29] MEDS: ENOXAPARIN 40 MG/0.4 ML SQ SCH (15:27)
[2019-08-29] MEDS ORDERED: ALBUTEROL/IPRATROPIUM 2.5MG/0.5MG, 3 ML NPPB PRN (16:00)
[2019-08-29 19:36] VITALS: BP 129/73
[2019-08-29] MEDS ORDERED: ALBUTEROL SULFATE 200 PUFFS/8.5 GR INH INH PRN (20:30)
[2019-08-29] MEDS: MELATONIN 3 MG TABLET PO SCH (20:47)
[2019-08-29] MEDS ORDERED: BUDESONIDE 0.5 MG/2 ML INHA NPPB SCH (21:00)
[2019-08-29] MEDS ORDERED: ARNUITY IH ONE (21:30)
[2019-08-30 01:33] VITALS: BP 125/76
[2019-08-30] MEDS: AMPICILLIN/SULBACTAM 3 GM in SODIUM CHLORIDE 0.9% 100 ML IV SCH ×2 (03:10→08:58)
[2019-08-30 07:22] VITALS: BP 97/65
[2019-08-30] MEDS: FLUTICASONE FUROATE 100MCG/INH INH SCH (08:46)
[2019-08-30] MEDS: ZINC SULFATE 220 MG CAPSULE PO SCH (08:46)
[2019-08-30] MEDS: MONTELUKAST 10 MG TABLET PO SCH (08:46)
[2019-08-30] MEDS: CHOLECALCIFEROL 1,000 UNIT TABLET PO SCH (08:46)
[2019-08-30] MEDS: SULFASALAZINE 500 MG TABLET PO SCH (08:47)
[2019-08-30] MEDS: HYDROXYCHLOROQUINE 200 MG TABLET PO SCH (08:47)
[2019-08-30] MEDS: FUROSEMIDE 40 MG TABLET PO SCH (08:47)
[2019-08-30] MEDS: GUAIFENESIN ER 600 MG TABLET PO SCH (08:47)
[2019-08-30] MEDS: DOXYCYCLINE 100MG TABLET PO SCH (08:47)
[2019-08-30] MEDS ORDERED: TEMPLATE NON-FORMULARY MED. (Umeclidinium Bromide (Incruse Ellipta) 1 PUFF) INH SCH (09:00)
[2019-08-30] MEDS ORDERED: GUAI600T31 PO (10:00)
[2019-08-30] MEDS ORDERED: DOXY100T PO (10:00)
[2019-08-30] MEDS ORDERED: METH4TAB PO (10:00)
[2019-08-30] MEDS ORDERED: AMOX1TAB64 PO (10:00)
== END 2019-08-30 12:08 | disposition home or self-care (01) | DRG 193 ==
LOC: ED 13:47 → EDIP 15:08 → 4NW 16:37 → 3N 08-26 13:48 → DCLOUNGE 08-30 11:59
PROVIDERS: ADMIT Family Medicine; ATTEND Internal Medicine
DX: J18.9 Pneumonia, unspecified organism (principal); J96.21 Acute and chronic respiratory failure with hypoxia; E44.1 Mild protein-calorie malnutrition; D72.810 Lymphocytopenia; J43.9 Emphysema, unspecified; M06.9 Rheumatoid arthritis, unspecified; R73.9 Hyperglycemia, unspecified; D72.819 Decreased white blood cell count, unspecified; E87.8 Other disorders of electrolyte and fluid balance, not elsewhere classified; Z20.828 Contact with and (suspected) exposure to other viral communicable diseases; Z87.891 Personal history of nicotine dependence; Z56.0 Unemployment, unspecified; Z79.51 Long term (current) use of inhaled steroids; Z68.32 Body mass index [BMI] 32.0-32.9, adult
CPT/HCPCS: 36415; 71045; 80048; 80053; 82565; 82728; 83605; 83615; 83735; 83880; 84145; 84439; 84443; 84481; 84484; 85025; 85379; 85651; 86140; 87040; 93005; 96374; 99291; G0378; J0295; J0456; J0696; J1650; J7509; J2920; J7050; J7120; J7512; U0001-CS

== ENCOUNTER 2019-09-14 21:49 | Inpatient (IN) | payer OTHER ==
[~2019-09-14] VITALS: Ht 177.8 cm; Wt 100.4 kg
[~2019-09-14 21:49] MED LIST changes: +AMOX1TAB64 PO; +ETOMIDATE 20 MG/10 ML ONE; +FLUT9.9S16 NAS; +GUAI600T31 PO; +METH4TAB PO; +MIDAZOLAM 1 MG/ML, 5ML ONE; +PROPOFOL 10 MG/ML, 100ML IV ONE; +SUCCINYLCHOLINE 20 MG/ML, 10ML ONE
[2019-09-14] MEDS ORDERED: SODIUM CHLORIDE FLUSH 10ML SYR IVF ONE (22:30)
[2019-09-14] MEDS ORDERED: ALBUTEROL SULFATE 200 PUFFS/8.5 GR INH INH PRN (23:00)
--- NOTE | 2019-09-14 23:03 | NUR ---
code cardiac called
--- NOTE | 2019-09-14 23:03 | NUR ---
PATIENT COMES INTO RNS ROOM, SOB DIAPHORETIC, PT REPORTS HE HAS A JHX OF EPHYSEMA AND COPD, NORMALY ON 3L OF OXYGEN AT HOME WITH AN O2 LEVEL AROUND 92. RN GAVE PATIENT PROAIR WITH SPACER. PATIENT TOLERATED IT WELL. PATINETS HR IS 110S, HE DENIES ANY CP. PATINET RR 33 AND HE IS BELLY BREATHING. OBTAINING AN ABG. PATIENT IS ON 4L SATING AT 94%
--- NOTE | 2019-09-14 23:08 | NUR ---
CODE CARDIAC CALLED AT 2307. PATIENT CHANGED, PADS PLACED. 2ND IV STARTING
--- NOTE | 2019-09-14 23:12 | NUR ---
PATIENT ON 6L OF NC WAS SATING AT 88%. PATIENT PLACED ON A NONREBREATHER 93
--- NOTE | 2019-09-14 23:16 | NUR ---
MD AT BEDSIDE PLAN TO INTUBATE
[2019-09-14 23:19] LABS: BASOPHILS # (AUTO) 0.05 x10^3/uL (0-0.1); BASOPHILS % (AUTO) 0 % (0-1); EOSINOPHILS # (AUTO) 0.85 x10^3/uL (0-0.4); EOSINOPHILS % (AUTO) 7 % (1-7); LYMPHOCYTES # (AUTO) 1.37 x10^3/uL (1-3.4); LYMPHOCYTES % (AUTO) 12 % (22-44); MD NO; MEAN CORPUSCULAR HEMOGLOBIN 28.4 pg (27.5-34.5); MEAN CORPUSCULAR HGB CONC 31.9 g/dL (33.2-36.2); MEAN CORPUSCULAR VOLUME 89.3 fL (81-97); MEAN PLATELET VOLUME 8.2 fL (7.4-10.4); MONOCYTES # (AUTO) 0.71 x10^3/uL (0.2-0.8); MONOCYTES % (AUTO) 6 % (2-9); NEUTROPHILS # (AUTO) 8.85 x10^3/uL (1.8-6.8); NEUTROPHILS % (AUTO) 75 % (42-75); PLATELET COUNT 202 x10^3/uL (130-400); RED BLOOD COUNT 5.76 x10^6/uL (4.38-5.82); RED CELL DISTRIBUTION WIDTH 15.3 % (9.4-14.8)
--- NOTE | 2019-09-14 23:25 | NUR ---
RT IN ROOM. PLAN TO INTUBATE WITH ETIMODATE AND SUCCS
--- NOTE | 2019-09-14 23:27 | NUR ---
20 OF ETOMIDATE IN BY TRAUMA RN [id number] AND 100 OF SUCCS GIVEN
--- NOTE | 2019-09-14 23:28 | NUR ---
INTUBATED PATIENT. 22 AT THE LIP. GOOD COLOR CHANGE Addendum: 09/14/19 at 2331 by TACOSTA 23 AT THE LIP. PROP STARTED AT 5
[2019-09-14 23:30] LABS: ALANINE AMINOTRANSFERASE 50 U/L (12-78); ALBUMIN 3.9 g/dL (3.4-5.0); CALCIUM 9.7 mg/dL (8.5-10.1); CREATININE 1.23 mg/dL (0.7-1.3)
--- NOTE | 2019-09-14 23:31 | NUR ---
NG TUBE PLACED IN RIGHT NARE, PLACEMENT CONFIRMED
[2019-09-14 23:34] LABS: ALKALINE PHOSPHATASE 105 U/L (45-117); BILIRUBIN,TOTAL 0.5 mg/dL (0.2-1.0); TOTAL PROTEIN 9.4 g/dL (6.4-8.2); TROPONIN I 0.022 ng/mL (0.000-0.045)
[2019-09-14 23:37] LABS: ANION GAP 6 mmol/L (5-15); CHLORIDE 96 mmol/L (98-107)
--- NOTE | 2019-09-14 23:38 | NUR ---
PATIENT WAKING UP BUCKING THE VENT, 4 OF VERSED GIVEN AND PROP INCREASED TO 15
[2019-09-14] MEDS ORDERED: CEFTRIAXONE PMX 1GM/50ML 50 ML ONE (23:40)
[2019-09-14] MEDS ORDERED: MAGNESIUM SULFATE PMX 2GM/50ML 50 ML ONE (23:40)
--- NOTE | 2019-09-14 23:42 | NUR ---
GLADYS 1GM PETERSON AND GIVEN
--- NOTE | 2019-09-14 23:49 | NUR ---
CODE CARDIAC TIMES: CODE CARDIAC INITIATED AND GREASE REMOVER CALLED @ [id number] CARDIOLOGY PAGED @ 2302 CODE CARDIAC CANCELED @ 6807
--- NOTE | 2019-09-14 23:50 | NUR ---
CODE STEMI CANCELED
--- NOTE | 2019-09-14 23:50 | NUR ---
2GM IV MAG STARTED
--- NOTE | 2019-09-14 23:53 | NUR ---
RN CONTINUES TO INCREASE PATIENTS PROP TO HELP SEDATE PATIENT, PATIENT IS MOVING AND BITING ON TUBE. PROP AT 35MCG/KG/MIN
--- NOTE | 2019-09-14 23:55 | NUR ---
CARUSO PLACED, SOFT RESTRAINTS PLACED ON PATIENT FOR SAFETY
[2019-09-15] MEDS ORDERED: SUCCINYLCHOLINE 20 MG/ML, 10ML IVPush ONE
[2019-09-15] MEDS ORDERED: ETOMIDATE 20 MG/10 ML IVPush ONE
[2019-09-15] MEDS ORDERED: MAGNESIUM SULFATE PMX 2GM/50ML 50 ML IV ONE
[2019-09-15] MEDS ORDERED: MIDAZOLAM 1 MG/ML, 2ML IVPush ONE
[2019-09-15] MEDS ORDERED: AZITHROMYCIN 500 MG in SODIUM CHLORIDE 0.9% 250 ML IV ONE
[2019-09-15] MEDS ORDERED: CEFTRIAXONE PMX 1GM/50ML 50 ML IV ONE
[2019-09-15] MEDS: PROPOFOL 100 ML IV PRN ×3 (00:19→19:59)
--- NOTE | 2019-09-15 00:21 | NUR ---
RT AT BEDSIDE SUCTIONING PATIENT
[2019-09-15] MEDS ORDERED: ONDANSETRON 2MG/ML, 2ML IVPush PRN (00:30)
[2019-09-15] MEDS ORDERED: hydrALAzine 20 MG/ML, 1ML IVPush PRN (00:30)
--- NOTE | 2019-09-15 00:35 | NUR ---
ASSUMED CARE OF PT REPORT FROM JADA, PT INTUBATED SEDATED IN NAD AT THIS TIME
--- NOTE | 2019-09-15 01:00 | NUR ---
REPORT TO RAJIV
[2019-09-15] MEDS ORDERED: PROPOFOL 100 ML IV PRN (01:18)
[2019-09-15] MEDS ORDERED: NOREPINEPHRINE 8 MG in SODIUM CHLORIDE 0.9% 242 ML IV PRN (01:18)
[2019-09-15] MEDS ORDERED: LIDOCAINE-MPF 1%, 2ML ENDO PRN (01:30)
[2019-09-15] MEDS ORDERED: GLUCAGON 1 MG IM PRN (01:30)
[2019-09-15] MEDS ORDERED: DEXTROSE 4 GM TAB.CHEW PO PRN (01:30)
[2019-09-15] MEDS ORDERED: BISACODYL 10 MG SUPP PR PRN (01:30)
[2019-09-15] MEDS ORDERED: ALBUTEROL/IPRATROPIUM 2.5MG/0.5MG, 3 ML INLINE SCH (01:30)
[2019-09-15] MEDS ORDERED: SENNA 176 MG/5 ML ORAL SOL NG PRN (01:30)
[2019-09-15] MEDS ORDERED: SENNA/DOCUSATE TABLET NG PRN (01:30)
[2019-09-15] MEDS ORDERED: PHARMACY MAY ADJ FOR RENAL FX MC SCH (01:30)
[2019-09-15] MEDS ORDERED: LACTULOSE 20 GM/30 ML UDC NG PRN (01:30)
[2019-09-15] MEDS ORDERED: DEXTROSE 50%, 50ML SYRINGE IVPush PRN (01:30)
[2019-09-15] MEDS ORDERED: ALBUTEROL/IPRATROPIUM 2.5MG/0.5MG, 3 ML ONE ×5 (02:56→13:38)
[2019-09-15] MEDS: ALBUTEROL/IPRATROPIUM 2.5MG/0.5MG, 3 ML NPPB SCH ×7 (03:00→22:45)
[2019-09-15] MEDS: MIDAZOLAM HCL 50 MG in SODIUM CHLORIDE 0.9% 40 ML IV PRN ×2 (03:16→17:09)
--- NOTE | 2019-09-15 03:21 | NUR ---
pt started on versed drip at 1mg/hr
[2019-09-15] MEDS ORDERED: FAMOTIDINE 20 MG/2 ML ONE ×2 (03:28→13:31)
[2019-09-15] MEDS ORDERED: HEPARIN 5,000 UNITS/ML, 1ML ONE ×2 (03:28→09:08)
[2019-09-15] MEDS ORDERED: methylPREDNISolone SOD SUCC 125 MG/2 ML ONE ×3 (03:28→13:31)
[2019-09-15] MEDS: methylPREDNISolone SOD SUCC 125 MG/2 ML IVPush SCH ×4 (03:34→19:59)
[2019-09-15] MEDS: HEPARIN 5,000 UNITS/ML, 1ML SQ SCH ×3 (03:34→18:32)
[2019-09-15] MEDS: FAMOTIDINE 20 MG/2 ML IV SCH ×2 (03:34→13:37)
[2019-09-15] MEDS ORDERED: FENTANYL PF 100 MCG/2ML ONE ×4 (03:48→09:26)
[2019-09-15] MEDS: FENTANYL PF 100 MCG/2ML IVPush PRN ×3 (03:51→09:23)
--- NOTE | 2019-09-15 03:54 | NUR ---
pt wrote on a piece of paper that he was in pain. pt provided pain med and a ajustment on sedation meds.
--- NOTE | 2019-09-15 04:20 | NUR ---
PT SLEEPING IN BED, COLLISION ESTIMATOR WILL CONTINUE TO MONITOR
[2019-09-15 04:39] LABS: TROPONIN I < 0.015 ng/mL (0.000-0.045)
[2019-09-15 05:06] LABS: MICROSCOPIC INDICATED
[2019-09-15 05:28] LABS: AMPHETAMINE SCREEN, URINE Positive (Negative); BARBITURATE SCREEN, URINE Negative (Negative); BENZODIAZEPINE SCREEN, URINE Positive (Negative); CANNABINOID SCREEN, URINE Negative (Negative); COCAINE SCREEN, URINE Negative (Negative); METHADONE SCREEN, URINE Negative (Negative); OPIATE SCREEN, URINE Negative (Negative)
[2019-09-15] MEDS ORDERED: PROPOFOL 100 ML IV ONE (05:38)
[2019-09-15] MEDS ORDERED: OMNIPAQUE 350 MG/ML, 100ML BOTTLE ONE (05:43)
--- NOTE | 2019-09-15 06:46 | NUR ---
PT RESTING IN ROOM, RT IN ROOM WITH PT
[2019-09-15] MEDS ORDERED: BUDESONIDE 0.5 MG/2 ML INHA ONE (06:53)
[2019-09-15] MEDS: BUDESONIDE 0.5 MG/2 ML INHA NPPB SCH ×2 (06:54→21:00)
--- NOTE | 2019-09-15 07:09 | NUR ---
BEDSIDE REPROT RECEIVED FROM FRANKIE GUSTAFSON. ASSUMED CARE OF PT. PT APPEARS TO BE TOLERATING ET TUBE/VENT AND SEDATION WELL AT THIS TIME. SKIN WARM AND DRY. PERRLA. CALL LIGHT WITHIN REACH. WILL CONT TO MONITOR PT.
[2019-09-15] MEDS ORDERED: FUROSEMIDE 20 MG/2 ML ONE (07:44)
[2019-09-15] MEDS: FUROSEMIDE 20 MG/2 ML IV SCH ×2 (07:49→20:41)
--- NOTE | 2019-09-15 08:01 | NUR ---
PT AWOKE AND LOOKED AT RN. RN ASKED PT IF HE WOULD LIKE PAIN MEDICATION. PT NODDED YES. PT MEDICATED ORDERED. DRIPS TITRATED FOR PT'S COMFORT. PT ON VENT. PT ON CONT BP, CARDIAC AND SPO2 MONITORS. CALL LIGHT WITHIN REACH. WILL CONT TO MONITOR PT.
--- NOTE | 2019-09-15 08:50 | NUR ---
RT AT BEDSIDE. RT ADJUSTED VENT PER DR. STOKES'S REQUEST. PT ON END TIDAL VOLUME OF 580 AND RR 22 AT THIS TIME. PT AWAKEND AGAIN WHILE RN WAS IN ROOM. WILL RE-MEDICATE PT ORDERED FOR PAIN. PT CALM AND COOPERATIVE, NOT ATTEMPTING TO REMOVE ET TUBE. PT ON CONT BP, CARDIAC AND SPO2 MONITORS. CALL LIGHT WITHIN REACH. WILL CONT TO MONITOR PT.
[2019-09-15] MEDS: SODIUM CHLORIDE FLUSH 10ML SYR IVF SCH ×2 (09:03→20:41)
--- NOTE | 2019-09-15 09:24 | NUR ---
PT MEDICATED ORDERED FOR SEDATION. SEDATION DRIPS TITRATED PER PROTOCOL. PT WAS WRITING MESSAGES TO RN AND APPEARED AO X 4. PT APPEARED TO BE MOVING ALL EXTREMITIES W/O DIFFICULTY. PT ON CONT BP, CARDIAC AND SPO2 MONITOR. CALL LIGHT WITHIN REACH.
[2019-09-15 10:01] LABS: TROPONIN I < 0.015 ng/mL (0.000-0.045)
--- NOTE | 2019-09-15 10:20 | NUR ---
PT NOW APPEARS TO BE RESTING COMFORTABLY ON GURNEY AND TOLERATING ET TUBE AND SEDATION WELL. NO ACUTE DISTRESS NOTED. PT ON CONT BP, CARDIAC AND SPO2 MONITORS. CALL LIGHT WITHIN REACH. WILL CONT TO MONITOR PT.
--- NOTE | 2019-09-15 11:04 | NUR ---
CARDS CHALLAPPALI AT BEDSIDE FOR EVAL.
--- NOTE | 2019-09-15 11:21 | NUR ---
CALLED RT SHITAL D/T PT TRENDING 91-92. RN ATTEMPTED TO SUCTION PT. NO IMPROVEMENT IN SPO2. PT ON CONT BP, CARDIAC AND SPO2 MONITORS. PT APPEARS TO BE TOLERATING ET TUBE AND SEDATION WELL. PT SLIGHTLY DIAPHORETIC ON FOREHEAD. WILL CONT TO MONITOR PT.
--- NOTE | 2019-09-15 11:36 | NUR ---
RT SHITAL AT BEDSIDE. PT'S OXYGEN TURNED FROM 50% TO 60%. PER RT SHITAL SHE SPOKE WITH RUBEN STOKES. PT APPEARS TO BE TOLERATING SEDATION WELL. PT ON CONT BP, CARDIAC AND SPO2 MONITORS. CALL LIGHT WITHIN REACH. WILL CONT TO MONITOR PT.
--- NOTE | 2019-09-15 12:20 | NUR ---
PT CURRENTLY RESTING ON [employer]bi[employer]. PT APPEARS TO BE TOLERATING ET TUBE AND SEDATION WELL AT THIS TIME. REPORT TO BREAK RN ENZO WHO WILL MONIOR PT DURING THIS RN'S LUNCH BREAK.
[2019-09-15] MEDS ORDERED: ACETAMINOPHEN 650 MG/20.3 ML UDC ONE (12:40)
[2019-09-15] MEDS: ACETAMINOPHEN 650 MG/20.3 ML UDC PO/NG PRN (12:56)
--- NOTE | 2019-09-15 13:00 | NUR ---
TASK RN: MOUTH CARE AND TUBE SUCTIONED PATIENT THEN MEDICATED PER EMAR FOR CARUSO TEMP OF 100.4. NG THEN CLAMPED VSS ON C SOFTWARE ENGINEER AND VENTILATING WELL/APPEARS COMFORTABLE ON 10 OF PROPOFOL AND 6 OF VERSED. RESTRAINT CHECK UNREMARKABLE TO CLARIFY WITH PROVIDER NEED FOR TUBE FEEDS
--- NOTE | 2019-09-15 13:57 | NUR ---
RT SHITAL AT BEDSIDE FOR EVAL. PT APPEARS TO BE RESTING COMFORTABLY AND APPEARS TO BE TOLERATING ET TUBE AND SEDATION WELL AT THIS TIME. PT MEDICATED FOR SLIGHT FEVER. PILLOW UNDERNEATH PT'S LEGS TO OFFLOAD HEELS. PT ON CONT BP, CARDIAC AND SPO2 MONITORS. CALL LIGHT WITHIN REACH. WILL CONT TO MONITOR PT.
--- NOTE | 2019-09-15 14:57 | NUR ---
PT CURRENTLY RESTING ON [employer]. PT APPEARS TO BE TOLERATING ET TUBE AND SEDATION WELL. PT ON CONT BP, CARDIAC AND SPO2 MONTORS. PT POSITIONED FOR COMFORT. CALL LIGHT WITHIN REACH. WILL CONT TO MONITOR PT.
--- NOTE | 2019-09-15 15:49 | NUR ---
PT CURRENTLY RESTING ON GURNEY. NO ACUTE DISTRESS NOTED AT THIS TIME. PT APPEARS TO BE TOLERATING ET TUBE AND SEDATION WELL AT THIS TIME. PT ON CONT BP, SPO2 AND CARDIAC MONITORS. BED IN LOW AND LOCKED POSITION. HEELS RAISED OFF THE BED WITH A PILLOW. CALL LIGHT WITHIN REACH. WILL CONT TO MONITOR PT.
--- NOTE | 2019-09-15 17:15 | NUR ---
REPORT TO FRANKIE NASH IN ICU.
[2019-09-16] MEDS: MIDAZOLAM HCL 50 MG in SODIUM CHLORIDE 0.9% 40 ML IV PRN ×3 (00:04→15:48)
[2019-09-16] MEDS: HEPARIN 5,000 UNITS/ML, 1ML SQ SCH ×3 (01:23→16:53)
[2019-09-16] MEDS: methylPREDNISolone SOD SUCC 125 MG/2 ML IVPush SCH ×4 (01:25→20:17)
[2019-09-16] MEDS: FAMOTIDINE 20 MG/2 ML IV SCH ×2 (01:26→12:51)
[2019-09-16] MEDS: PROPOFOL 100 ML IV PRN ×4 (01:29→20:18)
[2019-09-16] MEDS: ALBUTEROL/IPRATROPIUM 2.5MG/0.5MG, 3 ML NPPB SCH ×6 (02:45→22:30)
[2019-09-16 04:00] VITALS: BP 112/71
[2019-09-16 04:47] LABS: BASOPHILS # (AUTO) 0.02 x10^3/uL (0-0.1); BASOPHILS % (AUTO) 0 % (0-1); EOSINOPHILS % (AUTO) 0 % (1-7); LYMPHOCYTES # (AUTO) 0.58 x10^3/uL (1-3.4); LYMPHOCYTES % (AUTO) 10 % (22-44); MD NO; MEAN CORPUSCULAR HEMOGLOBIN 28.7 pg (27.5-34.5); MEAN CORPUSCULAR VOLUME 87.1 fL (81-97); MEAN PLATELET VOLUME 8.2 fL (7.4-10.4); MONOCYTES # (AUTO) 0.11 x10^3/uL (0.2-0.8); MONOCYTES % (AUTO) 2 % (2-9); NEUTROPHILS # (AUTO) 4.86 x10^3/uL (1.8-6.8); NEUTROPHILS % (AUTO) 87 % (42-75); PLATELET COUNT 192 x10^3/uL (130-400); RED BLOOD COUNT 4.72 x10^6/uL (4.38-5.82); RED CELL DISTRIBUTION WIDTH 15.1 % (9.4-14.8)
[2019-09-16 04:54] LABS: ANION GAP 3 mmol/L (5-15); CALCIUM 9.3 mg/dL (8.5-10.1); CHLORIDE 100 mmol/L (98-107)
[2019-09-16] MEDS ORDERED: LIDOCAINE-MPF 1%, 5ML ONE (06:44)
[2019-09-16] MEDS: BUDESONIDE 0.5 MG/2 ML INHA NPPB SCH ×2 (06:50→21:00)
[2019-09-16] MEDS: FUROSEMIDE 20 MG/2 ML IV SCH (08:54)
[2019-09-16] MEDS: SODIUM CHLORIDE FLUSH 10ML SYR IVF SCH ×2 (08:55→20:17)
[2019-09-16] MEDS: FENTANYL PF 100 MCG/2ML IVPush PRN (10:45)
[2019-09-16] MEDS: PIPERACILLIN/TAZO/PMX 3.375GM 50 ML IV SCH ×3 (11:11→23:21)
[2019-09-16] MEDS ORDERED: LIDOCAINE 2%, 20ML ONE (11:36)
--- NOTE | 2019-09-16 13:39 | NUR ---
TF recommendations: Promote ON propofol: 80 ml/hr goal OFF propofol: 85 ml/hr goal begin TF at 10 ml/hr If no other iv fluids provided, recommend 50 ml free water flush Q4 hours as appropriate to meet fluid needs.
[2019-09-16] MEDS: SODIUM CHLORIDE INHALATION 7%, 4 ML NPPB SCH ×2 (14:30→20:00)
[2019-09-16] MEDS ORDERED: AZITHROMYCIN 500 MG in SODIUM CHLORIDE 0.9% 250 ML IV SCH (23:00)
[2019-09-17] MEDS ORDERED: CEFTRIAXONE PMX 1GM/50ML 50 ML IV SCH
[2019-09-17] MEDS: ALBUTEROL/IPRATROPIUM 2.5MG/0.5MG, 3 ML NPPB SCH ×6 (03:18→22:25)
[2019-09-17] MEDS: PIPERACILLIN/TAZO/PMX 3.375GM 50 ML IV SCH ×4 (04:21→22:42)
[2019-09-17 04:30] VITALS: BP 105/55
[2019-09-17 05:23] LABS: ANION GAP 4 mmol/L (5-15); CHLORIDE 101 mmol/L (98-107); CREATININE 1.09 mg/dL (0.7-1.3)
[2019-09-17 05:49] LABS: MEAN CORPUSCULAR HEMOGLOBIN 28.7 pg (27.5-34.5); MEAN CORPUSCULAR HGB CONC 32.6 g/dL (33.2-36.2); MEAN CORPUSCULAR VOLUME 88.1 fL (81-97); MEAN PLATELET VOLUME 8.6 fL (7.4-10.4); PLATELET COUNT 174 x10^3/uL (130-400); RED BLOOD COUNT 4.61 x10^6/uL (4.38-5.82); RED CELL DISTRIBUTION WIDTH 15.4 % (9.4-14.8)
[2019-09-17 05:50] LABS: BASOPHILS % (AUTO) 0 % (0-1); EOSINOPHILS # (AUTO) 0.01 x10^3/uL (0-0.4); EOSINOPHILS % (AUTO) 0 % (1-7); LYMPHOCYTES # (AUTO) 0.51 x10^3/uL (1-3.4); LYMPHOCYTES % (AUTO) 7 % (22-44); MD SCAN; MONOCYTES # (AUTO) 0.26 x10^3/uL (0.2-0.8); MONOCYTES % (AUTO) 4 % (2-9); NEUTROPHILS # (AUTO) 6.14 x10^3/uL (1.8-6.8); NEUTROPHILS % (AUTO) 89 % (42-75)
[2019-09-17] MEDS: PROPOFOL 100 ML IV PRN ×4 (06:01→22:12)
[2019-09-17] MEDS: SODIUM CHLORIDE INHALATION 7%, 4 ML NPPB SCH (07:10)
[2019-09-17] MEDS: BUDESONIDE 0.5 MG/2 ML INHA NPPB SCH ×2 (07:10→19:55)
[2019-09-17] MEDS: SODIUM CHLORIDE FLUSH 10ML SYR IVF SCH ×2 (08:08→20:21)
[2019-09-17] MEDS: HEPARIN 5,000 UNITS/ML, 1ML SQ SCH ×3 (08:09→16:19)
[2019-09-17] MEDS: methylPREDNISolone SOD SUCC 125 MG/2 ML IVPush SCH ×4 (08:09→23:35)
[2019-09-17] MEDS: MIDAZOLAM HCL 50 MG in SODIUM CHLORIDE 0.9% 40 ML IV PRN ×3 (11:21→18:29)
[2019-09-17] MEDS: FAMOTIDINE 20 MG/2 ML IV SCH ×2 (12:25)
[2019-09-17] MEDS: ACETAMINOPHEN 650 MG/20.3 ML UDC PO/NG PRN (19:24)
[2019-09-17] MEDS: HYDROXYCHLOROQUINE 200 MG TABLET PO SCH (20:21)
[2019-09-17] MEDS ORDERED: SODIUM CHLORIDE INHALATION 7%, 4 ML NPPB SCH (21:00)
[2019-09-18] MEDS: FAMOTIDINE 20 MG/2 ML IV SCH ×2 (01:46→13:43)
[2019-09-18] MEDS: HEPARIN 5,000 UNITS/ML, 1ML SQ SCH ×3 (01:47→16:21)
[2019-09-18] MEDS: MIDAZOLAM HCL 50 MG in SODIUM CHLORIDE 0.9% 40 ML IV PRN ×4 (01:50→22:43)
[2019-09-18] MEDS: ALBUTEROL/IPRATROPIUM 2.5MG/0.5MG, 3 ML NPPB SCH ×6 (02:45→22:15)
[2019-09-18] MEDS: PROPOFOL 100 ML IV PRN ×4 (03:03→22:43)
[2019-09-18 04:00] VITALS: BP 109/64
[2019-09-18] MEDS: PIPERACILLIN/TAZO/PMX 3.375GM 50 ML IV SCH ×4 (04:15→22:43)
[2019-09-18 06:12] LABS: BASOPHILS # (AUTO) 0.01 x10^3/uL (0-0.1); BASOPHILS % (AUTO) 0 % (0-1); EOSINOPHILS % (AUTO) 0 % (1-7); LYMPHOCYTES # (AUTO) 0.51 x10^3/uL (1-3.4); LYMPHOCYTES % (AUTO) 9 % (22-44); MD NO; MEAN CORPUSCULAR HEMOGLOBIN 28.7 pg (27.5-34.5); MEAN CORPUSCULAR HGB CONC 32.8 g/dL (33.2-36.2); MEAN CORPUSCULAR VOLUME 87.5 fL (81-97); MONOCYTES # (AUTO) 0.32 x10^3/uL (0.2-0.8); MONOCYTES % (AUTO) 6 % (2-9); NEUTROPHILS # (AUTO) 4.82 x10^3/uL (1.8-6.8); NEUTROPHILS % (AUTO) 85 % (42-75); PLATELET COUNT 156 x10^3/uL (130-400); RED BLOOD COUNT 4.47 x10^6/uL (4.38-5.82); RED CELL DISTRIBUTION WIDTH 16.1 % (9.4-14.8)
[2019-09-18 06:22] LABS: ANION GAP 3 mmol/L (5-15); CALCIUM 8.6 mg/dL (8.5-10.1); CHLORIDE 105 mmol/L (98-107)
[2019-09-18 06:23] LABS: CREATININE 1.06 mg/dL (0.7-1.3); TRIGLYCERIDES 143 mg/dL (50-200)
[2019-09-18] MEDS: BUDESONIDE 0.5 MG/2 ML INHA NPPB SCH ×2 (06:44→18:55)
[2019-09-18] MEDS: HYDROXYCHLOROQUINE 200 MG TABLET PO SCH (08:09)
[2019-09-18] MEDS: SULFASALAZINE 500 MG TABLET PO SCH (08:09)
[2019-09-18] MEDS: methylPREDNISolone SOD SUCC 125 MG/2 ML IVPush SCH ×2 (08:09→16:21)
[2019-09-18] MEDS: SODIUM CHLORIDE FLUSH 10ML SYR IVF SCH ×2 (08:10→20:57)
[2019-09-18] MEDS: PLAQUENIL 200MG/8ML ORAL SUSP PO SCH (20:57)
[2019-09-19] MEDS: FAMOTIDINE 20 MG/2 ML IV SCH ×2 (00:38→13:07)
[2019-09-19] MEDS: FENTANYL PF 100 MCG/2ML IVPush PRN ×3 (00:38→19:36)
[2019-09-19] MEDS: methylPREDNISolone SOD SUCC 125 MG/2 ML IVPush SCH ×3 (00:38→16:26)
[2019-09-19] MEDS: HEPARIN 5,000 UNITS/ML, 1ML SQ SCH ×3 (00:38→16:26)
[2019-09-19] MEDS: ALBUTEROL/IPRATROPIUM 2.5MG/0.5MG, 3 ML NPPB SCH ×5 (02:15→22:18)
[2019-09-19 04:00] VITALS: BP 111/67
[2019-09-19] MEDS: PIPERACILLIN/TAZO/PMX 3.375GM 50 ML IV SCH (04:00)
[2019-09-19] MEDS: PROPOFOL 100 ML IV PRN ×3 (04:01→18:07)
[2019-09-19 06:03] LABS: ANION GAP 3 mmol/L (5-15); CALCIUM 8.8 mg/dL (8.5-10.1); CHLORIDE 107 mmol/L (98-107)
[2019-09-19 06:04] LABS: CREATININE 0.85 mg/dL (0.7-1.3)
[2019-09-19 06:17] LABS: BASOPHILS % (AUTO) 0 % (0-1); EOSINOPHILS % (AUTO) 0 % (1-7); LYMPHOCYTES # (AUTO) 0.49 x10^3/uL (1-3.4); LYMPHOCYTES % (AUTO) 8 % (22-44); MD NO; MEAN CORPUSCULAR HEMOGLOBIN 28.5 pg (27.5-34.5); MEAN PLATELET VOLUME 8.4 fL (7.4-10.4); MONOCYTES # (AUTO) 0.28 x10^3/uL (0.2-0.8); MONOCYTES % (AUTO) 5 % (2-9); NEUTROPHILS # (AUTO) 5.19 x10^3/uL (1.8-6.8); NEUTROPHILS % (AUTO) 87 % (42-75); PLATELET COUNT 136 x10^3/uL (130-400); RED BLOOD COUNT 4.42 x10^6/uL (4.38-5.82); RED CELL DISTRIBUTION WIDTH 15.8 % (9.4-14.8)
[2019-09-19] MEDS: BUDESONIDE 0.5 MG/2 ML INHA NPPB SCH ×2 (06:52→19:21)
[2019-09-19] MEDS: ERTAPENEM 1 GM in SODIUM CHLORIDE 0.9% 50 ML IV SCH (07:38)
[2019-09-19] MEDS: MIDAZOLAM HCL 50 MG in SODIUM CHLORIDE 0.9% 40 ML IV PRN ×3 (07:38→23:45)
[2019-09-19] MEDS: SODIUM CHLORIDE FLUSH 10ML SYR IVF SCH ×2 (09:18→20:39)
[2019-09-19] MEDS: PLAQUENIL 200MG/8ML ORAL SUSP PO SCH ×2 (09:19→20:38)
[2019-09-19] MEDS: SULFASALAZINE 500 MG TABLET PO SCH (11:16)
[2019-09-20] MEDS: FAMOTIDINE 20 MG/2 ML IV SCH ×3 (02:07→23:44)
[2019-09-20] MEDS: methylPREDNISolone SOD SUCC 125 MG/2 ML IVPush SCH ×4 (02:07→23:44)
[2019-09-20] MEDS: HEPARIN 5,000 UNITS/ML, 1ML SQ SCH ×4 (02:07→23:44)
[2019-09-20] MEDS: ALBUTEROL/IPRATROPIUM 2.5MG/0.5MG, 3 ML NPPB SCH ×2 (03:00→06:40)
[2019-09-20] MEDS: MIDAZOLAM HCL 50 MG in SODIUM CHLORIDE 0.9% 40 ML IV PRN (03:50)
[2019-09-20] MEDS: PROPOFOL 100 ML IV PRN (03:51)
[2019-09-20 04:35] VITALS: BP 106/62
[2019-09-20] MEDS: FENTANYL PF 100 MCG/2ML IVPush PRN (05:42)
[2019-09-20] MEDS: ERTAPENEM 1 GM in SODIUM CHLORIDE 0.9% 50 ML IV SCH (05:43)
[2019-09-20 06:35] LABS: BASOPHILS # (AUTO) 0.01 x10^3/uL (0-0.1); BASOPHILS % (AUTO) 0 % (0-1); EOSINOPHILS # (AUTO) 0.01 x10^3/uL (0-0.4); EOSINOPHILS % (AUTO) 0 % (1-7); LYMPHOCYTES # (AUTO) 0.48 x10^3/uL (1-3.4); LYMPHOCYTES % (AUTO) 8 % (22-44); MD NO; MEAN CORPUSCULAR HGB CONC 32.8 g/dL (33.2-36.2); MEAN CORPUSCULAR VOLUME 88.3 fL (81-97); MEAN PLATELET VOLUME 8.6 fL (7.4-10.4); MONOCYTES # (AUTO) 0.31 x10^3/uL (0.2-0.8); MONOCYTES % (AUTO) 5 % (2-9); NEUTROPHILS # (AUTO) 5.45 x10^3/uL (1.8-6.8); NEUTROPHILS % (AUTO) 87 % (42-75); PLATELET COUNT 130 x10^3/uL (130-400); RED BLOOD COUNT 4.33 x10^6/uL (4.38-5.82); RED CELL DISTRIBUTION WIDTH 15.4 % (9.4-14.8)
[2019-09-20] MEDS: BUDESONIDE 0.5 MG/2 ML INHA NPPB SCH (06:40)
[2019-09-20 07:03] LABS: CHLORIDE 108 mmol/L (98-107)
[2019-09-20 07:07] LABS: ANION GAP 4 mmol/L (5-15); CALCIUM 8.7 mg/dL (8.5-10.1); CREATININE 0.73 mg/dL (0.7-1.3)
[2019-09-20] MEDS: SULFASALAZINE 500 MG TABLET PO SCH (07:38)
[2019-09-20] MEDS: SODIUM CHLORIDE FLUSH 10ML SYR IVF SCH ×2 (07:39→20:22)
[2019-09-20] MEDS: PLAQUENIL 200MG/8ML ORAL SUSP PO SCH ×2 (07:39→20:15)
[2019-09-20] MEDS: [UNRECOGNIZED DRUG - REMARK] MC SCH ×2 (10:21→18:28)
[2019-09-20] MEDS ORDERED: ALBUTEROL/IPRATROPIUM 2.5MG/0.5MG, 3 ML HHN SCH ×2 (10:30)
[2019-09-20] MEDS: GUAIFENESIN ER 600 MG TABLET PO SCH ×2 (10:45→20:22)
[2019-09-20] MEDS ORDERED: ALBUTEROL-IPRATROPIUM MDI INH INH SCH (11:00)
[2019-09-20] MEDS ORDERED: ALBUTEROL/IPRATROPIUM 2.5MG/0.5MG, 3 ML NPPB SCH ×2 (11:00)
[2019-09-20 12:32] LABS: MICROSCOPIC INDICATED
[2019-09-20] MEDS: ACETAMINOPHEN 650 MG/20.3 ML UDC PO/NG PRN (15:47)
[2019-09-20] MEDS: ALBUTEROL HFA 90 MCG/SPRAY INH SCH ×2 (15:48→20:15)
[2019-09-20 20:08] VITALS: BP 108/60
[2019-09-20] MEDS: BREO INH SCH (20:22)
[2019-09-21] MEDS: [UNRECOGNIZED DRUG - REMARK] MC SCH (02:30)
[2019-09-21 04:26] VITALS: BP 103/59
[2019-09-21 04:47] LABS: BASOPHILS % (AUTO) 0 % (0-1); EOSINOPHILS % (AUTO) 0 % (1-7); LYMPHOCYTES # (AUTO) 0.62 x10^3/uL (1-3.4); LYMPHOCYTES % (AUTO) 11 % (22-44); MD NO; MEAN CORPUSCULAR HEMOGLOBIN 28.8 pg (27.5-34.5); MEAN CORPUSCULAR HGB CONC 32.6 g/dL (33.2-36.2); MEAN CORPUSCULAR VOLUME 88.2 fL (81-97); MEAN PLATELET VOLUME 8.9 fL (7.4-10.4); MONOCYTES # (AUTO) 0.26 x10^3/uL (0.2-0.8); MONOCYTES % (AUTO) 5 % (2-9); NEUTROPHILS # (AUTO) 4.54 x10^3/uL (1.8-6.8); NEUTROPHILS % (AUTO) 84 % (42-75); PLATELET COUNT 139 x10^3/uL (130-400); RED BLOOD COUNT 4.64 x10^6/uL (4.38-5.82); RED CELL DISTRIBUTION WIDTH 14.9 % (9.4-14.8)
[2019-09-21 04:56] LABS: ALANINE AMINOTRANSFERASE 75 U/L (12-78); ALBUMIN 2.9 g/dL (3.4-5.0); ANION GAP 4 mmol/L (5-15); CALCIUM 8.6 mg/dL (8.5-10.1); CHLORIDE 105 mmol/L (98-107); CREATININE 0.51 mg/dL (0.7-1.3)
[2019-09-21 04:59] LABS: ALKALINE PHOSPHATASE 48 U/L (45-117); BILIRUBIN,TOTAL 0.8 mg/dL (0.2-1.0); TOTAL PROTEIN 6.8 g/dL (6.4-8.2)
[2019-09-21] MEDS: ERTAPENEM 1 GM in SODIUM CHLORIDE 0.9% 50 ML IV SCH (06:05)
[2019-09-21] MEDS: ALBUTEROL HFA 90 MCG/SPRAY INH SCH ×4 (06:05→20:45)
[2019-09-21 06:13] VITALS: BP 101/63
[2019-09-21] MEDS: methylPREDNISolone SOD SUCC 125 MG/2 ML IVPush SCH (08:53)
[2019-09-21] MEDS: HEPARIN 5,000 UNITS/ML, 1ML SQ SCH ×2 (08:53→17:10)
[2019-09-21] MEDS: SODIUM CHLORIDE FLUSH 10ML SYR IVF SCH ×2 (08:54→20:45)
[2019-09-21] MEDS: SULFASALAZINE 500 MG TABLET PO SCH (08:54)
[2019-09-21] MEDS: FAMOTIDINE 20 MG TABLET PO SCH ×2 (08:54→20:45)
[2019-09-21] MEDS: GUAIFENESIN ER 600 MG TABLET PO SCH ×2 (08:54→20:45)
[2019-09-21] MEDS: PLAQUENIL 200MG/8ML ORAL SUSP PO SCH (08:55)
[2019-09-21] MEDS: BREO INH SCH ×2 (09:00→20:45)
[2019-09-21 14:17] VITALS: BP 115/73
[2019-09-21 20:42] VITALS: BP 110/68
[2019-09-21] MEDS: MELATONIN 5 MG TABLET PO SCH (20:45)
[2019-09-21] MEDS: methylPREDNISolone SOD SUCC 40 MG/ML IVPush SCH (20:45)
[2019-09-21] MEDS: HYDROXYCHLOROQUINE 200 MG TABLET PO SCH (20:46)
[2019-09-22 01:02] VITALS: BP 112/76
[2019-09-22] MEDS: HEPARIN 5,000 UNITS/ML, 1ML SQ SCH ×3 (01:05→16:58)
[2019-09-22] MEDS: ACETAMINOPHEN 650 MG/20.3 ML UDC PO/NG PRN (01:16)
[2019-09-22] MEDS: ALBUTEROL HFA 90 MCG/SPRAY INH SCH ×4 (06:22→21:09)
[2019-09-22 07:24] VITALS: BP 107/70
[2019-09-22] MEDS: BREO INH SCH ×2 (08:12→21:00)
[2019-09-22] MEDS: GUAIFENESIN ER 600 MG TABLET PO SCH ×2 (08:12→21:08)
[2019-09-22] MEDS: methylPREDNISolone SOD SUCC 40 MG/ML IVPush SCH ×2 (08:12→21:08)
[2019-09-22] MEDS: HYDROXYCHLOROQUINE 200 MG TABLET PO SCH ×2 (08:12→21:09)
[2019-09-22] MEDS: SULFASALAZINE 500 MG TABLET PO SCH (08:12)
[2019-09-22] MEDS: SODIUM CHLORIDE FLUSH 10ML SYR IVF SCH ×2 (08:13→21:08)
[2019-09-22] MEDS ORDERED: ACETAMINOPHEN 650 MG/20.3 ML UDC PO/NG PRN (08:30)
[2019-09-22] MEDS: ERTAPENEM 1 GM in SODIUM CHLORIDE 0.9% 50 ML IV SCH (08:38)
[2019-09-22] MEDS: LACTOBACILLUS CHEW TABLET PO SCH ×3 (08:38→21:09)
[2019-09-22] MEDS: SODIUM CHLORIDE 0.9% 1,000 ML IV SCH (08:38)
[2019-09-22 13:11] VITALS: BP 136/94
[2019-09-22 20:55] VITALS: BP 135/80
[2019-09-22] MEDS ORDERED: SENNA 176 MG/5 ML ORAL SOL NG SCH (21:00)
[2019-09-22] MEDS: MELATONIN 5 MG TABLET PO SCH (21:09)
[2019-09-23 00:49] VITALS: BP 114/66
[2019-09-23] MEDS: HEPARIN 5,000 UNITS/ML, 1ML SQ SCH ×2 (00:53→08:23)
[2019-09-23] MEDS: SODIUM CHLORIDE 0.9% 1,000 ML IV SCH (00:54)
[2019-09-23] MEDS: ALBUTEROL HFA 90 MCG/SPRAY INH SCH ×2 (05:20→12:08)
[2019-09-23 07:08] VITALS: BP 113/71
[2019-09-23] MEDS: SULFASALAZINE 500 MG TABLET PO SCH (08:23)
[2019-09-23] MEDS: GUAIFENESIN ER 600 MG TABLET PO SCH (08:23)
[2019-09-23] MEDS: methylPREDNISolone SOD SUCC 40 MG/ML IVPush SCH (08:23)
[2019-09-23] MEDS: ERTAPENEM 1 GM in SODIUM CHLORIDE 0.9% 50 ML IV SCH (08:23)
[2019-09-23] MEDS: BREO INH SCH (08:24)
[2019-09-23] MEDS: HYDROXYCHLOROQUINE 200 MG TABLET PO SCH (08:24)
[2019-09-23] MEDS: LACTOBACILLUS CHEW TABLET PO SCH (08:24)
[2019-09-23] MEDS: SODIUM CHLORIDE FLUSH 10ML SYR IVF SCH (08:24)
[2019-09-23] MEDS ORDERED: ACID1TAB7 PO (12:44)
== END 2019-09-23 14:29 | disposition home or self-care (01) | DRG 207 ==
LOC: ED 23:33 → EDIP 23:50 → ICU 09-15 17:20 → CCU 09-19 08:06 → 5SO 09-21 14:21
PROVIDERS: ADMIT Internal Medicine; ATTEND Internal Medicine
PROC: 5A1955Z Respiratory Ventilation, Greater than 96 Consecutive Hours (ICD-10-PCS; principal; 2019-09-14)
PROC: 0BH17EZ Insertion of Endotracheal Airway into Trachea, Via Natural or Artificial Opening (ICD-10-PCS; 2019-09-14)
PROC: 0BC78ZZ Extirpation of Matter from Left Main Bronchus, Via Natural or Artificial Opening Endoscopic (ICD-10-PCS; 2019-09-16)
PROC: 0BC38ZZ Extirpation of Matter from Right Main Bronchus, Via Natural or Artificial Opening Endoscopic (ICD-10-PCS; 2019-09-16)
DX: J96.01 Acute respiratory failure with hypoxia (principal); J15.5 Pneumonia due to Escherichia coli; E87.2 Acidosis; I50.32 Chronic diastolic (congestive) heart failure; J44.1 Chronic obstructive pulmonary disease with (acute) exacerbation; N17.9 Acute kidney failure, unspecified; Z16.12 Extended spectrum beta lactamase (ESBL) resistance; E87.4 Mixed disorder of acid-base balance; J44.0 Chronic obstructive pulmonary disease with (acute) lower respiratory infection; Z99.11 Dependence on respirator [ventilator] status; F17.210 Nicotine dependence, cigarettes, uncomplicated; M06.9 Rheumatoid arthritis, unspecified; I11.0 Hypertensive heart disease with heart failure; I48.91 Unspecified atrial fibrillation; I35.0 Nonrheumatic aortic (valve) stenosis; G47.33 Obstructive sleep apnea (adult) (pediatric); E66.9 Obesity, unspecified; E86.0 Dehydration; Z20.828 Contact with and (suspected) exposure to other viral communicable diseases; F15.10 Other stimulant abuse, uncomplicated; R00.1 Bradycardia, unspecified; I27.20 Pulmonary hypertension, unspecified; Z79.899 Other long term (current) drug therapy; Z82.49 Family history of ischemic heart disease and other diseases of the circulatory system
CPT/HCPCS: 36415; 36600; 84145; J3490; J7626; 71045; 71275; 80048; 80053; 80307; 81001; 82533; 82803; 83605; 83735; 83880; 84134; 84478; 84484; 85025; 86430; 87040; 87070; 87081; 87186; 87205; 87635; 93005; 93308; 93321; 93325; 94002; 94003; 94640; 94667; 94668; G0378; J0456; J0696; J1335; J1644; J2250; J2543; J2704; J3010; Q9967; J0330; J1940; J2920; J2930; J3475; J7030; J7050

== ENCOUNTER 2020-02-05 13:19 | Emergency (ER) | payer OTHER ==
[~2020-02-05] VITALS: Ht 177.8 cm; Wt 95.0 kg
[~2020-02-05 13:19] MED LIST changes: +ACID1TAB7 PO; -ETOMIDATE 20 MG/10 ML ONE; -MIDAZOLAM 1 MG/ML, 5ML ONE; -PROPOFOL 10 MG/ML, 100ML IV ONE; -SUCCINYLCHOLINE 20 MG/ML, 10ML ONE
[2020-02-05] MEDS ORDERED: ALBUTEROL/IPRATROPIUM 2.5MG/0.5MG, 3 ML ONE (13:43)
[2020-02-05] MEDS ORDERED: methylPREDNISolone SOD SUCC 125 MG/2 ML ONE (13:43)
[2020-02-05] MEDS ORDERED: SODIUM CHLORIDE FLUSH 10ML SYR IVF ONE (14:00)
[2020-02-05] MEDS ORDERED: ALBUTEROL/IPRATROPIUM 2.5MG/0.5MG, 3 ML NPPB ONE (14:00)
[2020-02-05] MEDS ORDERED: methylPREDNISolone SOD SUCC 125 MG/2 ML IV ONE (14:00)
--- NOTE | 2020-02-05 14:08 | NUR ---
MEDS ADMIN PER MAY. PT AMBULATED TO RESTROOM WITH STEADY GAIT TO PROVIDE URINE SAMPLE. UA COLLECTED AND SENT TO LAB.
[2020-02-05 14:22] LABS: ANION GAP 7 mmol/L (5-15); CALCIUM 8.6 mg/dL (8.5-10.1); CHLORIDE 96 mmol/L (98-107)
[2020-02-05 14:24] LABS: BASOPHILS % (AUTO) 0 % (0-1); EOSINOPHILS % (AUTO) 5 % (1-7); LYMPHOCYTES % (AUTO) 4 % (22-44); MEAN CORPUSCULAR HEMOGLOBIN 29.1 pg (27.5-34.5); MEAN CORPUSCULAR HGB CONC 32.9 g/dL (33.2-36.2); MEAN PLATELET VOLUME 8.6 fL (7.4-10.4); MONOCYTES % (AUTO) 5 % (2-9); NEUTROPHILS % (AUTO) 86 % (42-75); PLATELET COUNT 161 x10^3/uL (130-400); RED BLOOD COUNT 5.22 x10^6/uL (4.38-5.82); RED CELL DISTRIBUTION WIDTH 14.5 % (9.4-14.8)
[2020-02-05 14:27] LABS: ALANINE AMINOTRANSFERASE 21 U/L (12-78); ALKALINE PHOSPHATASE 93 U/L (45-117); BILIRUBIN,TOTAL 0.6 mg/dL (0.2-1.0); CREATININE 0.84 mg/dL (0.7-1.3); TOTAL PROTEIN 8.2 g/dL (6.4-8.2); TROPONIN I < 0.015 ng/mL (0.000-0.045)
[2020-02-05 14:41] LABS: MICROSCOPIC INDICATED
[2020-02-05 14:51] LABS: MD NO
[2020-02-05] MEDS ORDERED: CEFTRIAXONE PMX 1GM/50ML 50 ML IV ONE (15:00)
[2020-02-05] MEDS ORDERED: CEFTRIAXONE PMX 1GM/50ML 50 ML ONE (15:12)
--- NOTE | 2020-02-05 15:36 | NUR ---
US AT BEDSIDE.
[2020-02-05 15:46] VITALS: BP 113/59
== END 2020-02-05 17:07 | disposition home or self-care (01) ==
LOC: ED 14:30
DX: J44.1 Chronic obstructive pulmonary disease with (acute) exacerbation (principal); Z20.828 Contact with and (suspected) exposure to other viral communicable diseases; N45.3 Epididymo-orchitis; R06.02 Shortness of breath; R50.9 Fever, unspecified; R05 Cough; N50.812 Left testicular pain; I45.10 Unspecified right bundle-branch block; Z87.891 Personal history of nicotine dependence
CPT/HCPCS: 36415; 71045; 76870; 80053; 81001; 83880; 84484; 85025; 87077; 87086; 87186; 93005; 94640; 96365; 96375; 99285; J0696; J2930; U0003

== ENCOUNTER 2020-07-13 14:45 | Emergency (ER) | payer SELFPAY ==
[~2020-07-13] VITALS: Ht 177.8 cm; Wt 102.1 kg
[~2020-07-13 14:45] MED LIST changes: -MONT10TA11 PO; +MONT10TA17 PO
[2020-07-13] MEDS ORDERED: ALBUTEROL/IPRATROPIUM 2.5MG/0.5MG, 3 ML ONE (15:23)
--- NOTE | 2020-07-13 15:29 | NUR ---
BREAK RN. CC OF "IM HAVING A COPD EX FOR 2 DAYS NOW". PT STATES HE FELT LIKE HE HAD A SINUS INFECTION THAT GOT BETTER BUT NOW FEELS LIKE ITS HIS COPD. PT ADMITS TO HAVING YELLOW PHELGM. PT ON 3 L NC BASELINE. PT SITTING UP IN [facility]. RAPID, SHALLOW BREATHING. STARTED ON DUONEB TREATMENT.
[2020-07-13] MEDS ORDERED: ALBUTEROL/IPRATROPIUM 2.5MG/0.5MG, 3 ML NPPB ONE (15:30)
[2020-07-13 16:36] VITALS: BP 164/79
== END 2020-07-13 16:39 | disposition home or self-care (01) ==
LOC: ED 16:15
DX: J44.1 Chronic obstructive pulmonary disease with (acute) exacerbation (principal); J00 Acute nasopharyngitis [common cold]; R06.02 Shortness of breath; R06.00 Dyspnea, unspecified; I45.10 Unspecified right bundle-branch block; Z87.891 Personal history of nicotine dependence
CPT/HCPCS: 71045; 93005; 94640; 99283; J7512